=== PATIENT | male | born 1940 | race Caucasian/White ===

== ENCOUNTER 2016-06-28 21:51 | Inpatient (IN) | payer OTHER, MEDICARE ==
--- NOTE | ~2016-06-28 | DS ---
Unit #: [id number] #: [id number] Patient: GERALD ARGUETA [id number] [address] [place], [place] [address] [id number] I MR#: [id number] NAME: GERALD ARGUETA. ROOM: 215 Age: 75 Sex: M Admission Date: 06/29/2016 : 1940 Discharge Date: 07/01/2016 Attending Physician: Elvin Benoit M.D. Primary Care Physician: Heath De La Rosa M.D. DISCHARGE SUMMARY FINAL DIAGNOSIS Atypical pneumonia. SECONDARY DIAGNOSES 1. Gastroesophageal reflux disease. 2. Hypertension. CONSULT Dr. Wright, pulmonary. HOSPITAL COURSE Patient is a 75-year-old gentleman who basically presented with cough for the past 2 months. Presented to the emergency room and chest x-ray showed bilateral infiltrates with atypical pneumonia. He was seen by pulmonary and was started on Rocephin and Zithromax. He improved clinically and the cough improved. He has been seen by Dr. Wright. He initially was in isolation; however, this was discontinued. He was put on oral prednisone and will be converted to oral antibiotics today and discharged home for outpatient followup. Dr. Wright plans to do an outpatient CT for followup as an outpatient. He is currently not happy with his primary care provider and will follow up with a primary care provider of his choosing upon discharge. MEDICATIONS ON DISCHARGE Include: 1. Prednisone taper. 2. Albuterol HFA. 3. Humibid LA 600 mg p.o. twice daily. 4. Florastor 250 mg p.o. twice daily. 5. Aspirin 81 mg p.o. every day. 6. Omeprazole 20 mg p.o. every day. 7. Levaquin 750 mg p.o. every day for 5 more days if okay with pulmonary. TIME SPENT COORDINATING DISCHARGE About 22 minutes. Dictated by... Darcy Ding/loli TD: 07/01/2016 14:13 Unit #: [id number] #: [id number] Patient: GERALD ARGUETA JOB #: [id number] DISCHARGE SUMMARY X Gulshan Armando MD SUMMARY
--- NOTE | ~2016-06-28 | CO ---
Unit #: [id number] #: [id number] Patient: GERADL ARGUETA [id number] [place] [id number] [facility]. [place], [place] [address] [id number] Ryan MR#: [id number] NAME: GERALD ARGUETA. ROOM: 215 Age: 75 Sex: M Admission Date: 06/29/2016 : 1940 Attending Physician: Elvin Benoit M.D. Primary Care Physician: Heath De La Rosa M.D. Consultation Date: 06/29/2016 CONSULTATION REPORT REASON FOR CONSULTATION Possible pneumonia. HISTORY OF PRESENT ILLNESS The patient is a 75-year-old gentleman who I had seen in 2009 for an abnormal CAT scan consistent with old granulomatous disease. He has had a 1-month history of cough. Per his history, he was treated with Tessalon Perles without improvement. He had no definite fever but did have occasional mucopurulent sputum. There was maybe some scant blood-streaked sputum one month ago but none since. He ultimately was sent to the hospital where he was treated with Zithromax and Rocephin and improved. Multiple tests are pending, including HIV and gamma interferon release assay. He does feel better. There has been no definite wheezing. No further hemoptysis. No chest pain, pleurisy. No fever. He initially stated he had weight loss, but then he told me no definite weight loss. PAST MEDICAL HISTORY Past medical history is remarkable for gastroesophageal reflux disease, hypertension, hypercholesterolemia, apparently normal LV function. MEDICATIONS AT HOME According to the EHR, Tessalon Perles, aspirin and Prilosec. ALLERGIES Codeine. SOCIAL HISTORY Quit smoking decades ago. FAMILY HISTORY Apparently tuberculosis. REVIEW OF SYSTEMS As above. No fever, chills. Maybe some weight loss but that is vague. No chest pain, palpitations, abdominal pain, melena, hematochezia, hematemesis, hematuria, dysuria, focal weakness, paresthesias, leg pain, swelling. Further review of systems as above or negative. PHYSICAL EXAMINATION GENERAL: Examination reveals a gentleman who is awake and alert, greets me with, "Dr. Adriana Ricks." VITAL SIGNS: He is afebrile. Pulse is 68, respiratory rate 15, blood pressure 133/84. He is 5'7", 174 pounds. HEENT: Pupils equal, round and reactive to light. Sclerae anicteric. Unit #: [id number] #: [id number] Patient: GERALD ARGUETA Head atraumatic. Mucous membranes moist. He has a few natural teeth in his mandible that are in reasonable dentition. NECK: Supple. No supraclavicular or cervical adenopathy appreciated. CHEST: Decreased breath sounds. Fairly clear. No definite consolidation. CARDIAC: Examination reveals a regular rate and rhythm. No pathologic murmur, rub or gallop. ABDOMEN: Abdomen is soft, nontender. No hepatomegaly or rebound. EXTREMITIES: Extremities reveal no clubbing, cyanosis or edema. No calf tenderness. SKIN: Warm and dry without rash or diaphoresis. NEUROLOGIC: Grossly intact. No focal muscular or sensory deficits. DIAGNOSTIC STUDIES IMAGING: Chest x-ray - Fairly unremarkable. CT scan - He has a right medial lower lobe infiltrate consistent with pneumonia. He has a left peripheral infiltrate, likely pneumonia, and a small vague ground glass nodule in the left lower lobe. LABORATORY EXAMINATION: BUN is 11, creatinine 0.9. INR normal. Cardiac enzymes normal. CBC - White blood cell count 6.9, hemoglobin 12.6, platelet count 280. He has HIV pending. Legionella urine antigen negative. Flu screen negative. Fungal serology is pending. Urine shows 5-10 red cells, 2-5 white cells, leukocyte esterase positive. Blood cultures pending. Sputum is pending. CARDIOVASCULAR: EKG - Fairly normal. IMPRESSION 1. Pneumonia, community acquired, improved with antibiotic therapy. 2. Left lower lobe pulmonary nodule, unclear clinical significance. 3. Old granulomatous disease with a very prominent calcified granuloma right upper lobe. 4. Possible scant hemoptysis. 5. Medical problems listed above. PLAN Antibiotics. Followup cultures. Followup serologies. I would suggest outpatient short-term CT scan followup. If he has further hemoptysis, he will need bronchoscopy. Thank you very much for allowing me to participate in the care of Mr. Argueta. Dictated by... Alex Wright M.D. MANUELA/katarzyna TD: 06/29/2016 16:24 JOB #: [id number] Unit #: [id number] #: [id number] Patient: GERALD ARGUETA CONSULTATION REPORT X Alex Wright MD CONSULTATION REPORT
--- NOTE | ~2016-06-28 | CR72 ---
[facility] A Service of [facility] & [facility] RADIOLOGY TEXT RESULTS PATIENT: GERALD ARGUETA LOCATION: [place] [address]-01 : 42 UNIT #: [id number] AGE: [address]: Kiara Archuleta MD SEX: M ORDER DR: [id number] [facility] [address] [place], [place] [address] [id number] E MR#: [id number] Acc #: [id number] NAME: GERALD ARGUETA : 1940 SEX: M STUDY DATE/TIME: 06/28/2016 21:51 UNIT: CFTX ROOM: STUDY DESCRIPTION: CR Chest Single View Portable Attending Physician: Dina Barkley A.P.R.N. Ordering Physician: Dina Barkley A.P.R.N. Primary Care Physician: Heath De La Rosa M.D. MEDICAL IMAGING REPORT This report is preliminary unless electronic signature is present EXAM Portable chest, 06/28/2016 at 2151 hours. INDICATION Coughing fits and shortness of air for the last 2.5 months. FINDINGS AP portable chest is compared with 01/10/2010. Heart is enlarged. Infiltrate noted right iqt-ln-wiypy lung concerning for pneumonia. There is also a mild infiltrate at the left base. There are bilateral pleural effusions. Density in the left mid lung laterally is probably fluid in the fissure. Followup chest x-ray after therapy is completed is recommended. Granulomatous calcification noted right hilum and right upper lobe. IMPRESSION Bilateral infiltrates, right lzg-se-hczud lung and left base, worrisome for pneumonia. There are also bilateral pleural effusions. Density in the left mid lung is probably fluid in the fissure. Radiographic followup after therapy is recommended to ensure resolution. Dictated by... Cristiano Samaniego Jr., M.D. THIS IS AN ELECTRONICALLY VERIFIED REPORT Cristiano Samaniego Jr., M.D. at 06/29/2016 5:28 AM SHANIKA/carlin TD: 06/28/2016 23:41 JOB #: [id number] [facility]. [facility] A Service of [facility] & [facility] RADIOLOGY TEXT RESULTS PATIENT: GERALD ARGUETA LOCATION: [facility] 215-01 : 42 UNIT #: [id number] AGE: [address]: Kiara Archuleta MD SEX: M ORDER DR: MEDICAL IMAGING REPORT COPY
--- NOTE | ~2016-06-28 | PFT ---
[id number] [facility] [address] [place], [place] [address] [id number] I MR#: [id number] NAME: GERALD ARGUETA ROOM: 215 SEX: M STUDY DATE/TIME: 07/12/2016 : 1940 AGE: 75 STUDY DESCRIPTION: Attending Physician: Elvin Benoit M.D. Primary Care Physician: Haeth De La Rosa M.D. PULMONARY DIAGNOSTIC REPORT EXAM Pulmonary function test. FINDINGS Spirometry suggests a restrictive defect. FVC is reduced 70%. Flow volume loops consistent with a restrictive defect. Please note, restrictive defect cannot be confirmed with spirometry alone and would suggest full PFTs with lung volumes and diffusion capacity if clinically indicated. Dictated by... Darcy Honeycutt/dionna TD: 07/12/2016 12:47 JOB #: [id number] CC: Kiara Archuleta M.D. PULMONARY DIAGNOSTIC REPORT
--- NOTE | ~2016-06-28 | EKG ---
PATIENT: GERALD ARGUETA UNIT #: [id number] Ventricular Rate: 78 BPM Atrial Rate: 78 BPM P-R Interval: 130 ms QRS Duration: 86 ms Q-T Interval: 370 ms QTC Calculation(Bezet): 421 ms P [place]: 31 degrees Calculated R [place]: -9 degrees Calculated T [place]: 71 degrees Diagnosis Line: Normal sinus rhythm Diagnosis Line: Normal ECG Diagnosis Line: No previous ECGs available Diagnosis Line: Confirmed by CHARLA DUARTE MD ([id number]) on Diagnosis Line: 06/29/2016 8:05:45 AM INTERPRETING MD: ADRIAN
--- NOTE | ~2016-06-28 | CT57 ---
[facility] A Service of [facility] & [facility] RADIOLOGY TEXT RESULTS PATIENT: GERALD ARGUETA LOCATION: C2A - : 42 UNIT #: [id number] AGE: [address]: Elvin Benoit MD SEX: M ORDER DR: [id number] [facility] [address] [place], [place] [address] [id number] I MR#: [id number] Acc #: [id number] NAME: GERALD ARGUETA. : 1940 SEX: M STUDY DATE/TIME: 06/29/2016 7:56 UNIT: C2A ROOM: [facility] STUDY DESCRIPTION: CT Chest Wo Cont Attending Physician: Elvin Benoit M.D. Ordering Physician: Kiara Archuleta M.D. Primary Care Physician: Heath De La Rosa M.D. MEDICAL IMAGING REPORT This report is preliminary unless electronic signature is present EXAM CT of the chest without contrast INDICATION 75-year-old male with productive cough for 2 [address] and pneumonia. TECHNIQUE [address] of the chest was performed without contrast. Coronal and sagittal reformatted images were obtained. This CT exam was performed with one or more of the following radiation dose reduction techniques: automatic exposure control, adjustment of mA and/or kV according to patient size, and iterative reconstruction. COMPARISON 01/10/2010 FINDINGS There is dense consolidation in the right lower lobe consistent with pneumonia. There is a small focal consolidation in the posterior left upper lobe also consistent with pneumonia. There is a large calcified granuloma in the right lung. There is a 7.0 mm nodule in the left lower lobe on image 36 which is new since the study in 2009. The exact age is indeterminate. There is a small focal consolidation in the base of the left lower lobe. There are calcified mediastinal and hilar lymph nodes. There are also some prominent noncalcified mediastinal lymph nodes which are likely reactive given the findings in the lungs. No pleural effusion. Limited imaging of the upper abdomen is unremarkable. The bone windows are unremarkable. IMPRESSION 1. There are multifocal consolidations in the lungs, greatest in the right lower lobe. Findings are consistent with pneumonia. Followup [facility] A Service of [facility] & [facility] RADIOLOGY TEXT RESULTS PATIENT: GERALD ARGUETA LOCATION: A 215-01 : 42 UNIT #: [id number] AGE: [address]: Elvin Benoit MD SEX: M ORDER DR: to clearing is recommended. 2. There is a discrete 7.0 mm nodule in the left lower lobe which is indeterminate. It was not present on the 2009 study but the exact age and chronicity is uncertain. Recommend attention to this nodule on followup chest CT as well. Dictated by... Zack Willett M.D. THIS IS AN ELECTRONICALLY VERIFIED REPORT Zack Willett M.D. at 06/29/2016 4:14 PM Jhon TD: 06/29/2016 11:29 JOB #: [id number] MEDICAL IMAGING REPORT COPY
--- NOTE | ~2016-06-28 | HP ---
Unit #: [id number] #: [id number] Patient: GERALD ARGUETA [id number] [address] [place], [place] [address] [id number] I MR#: [id number] NAME: GERALD ARGUETA. ROOM: 215 Age: 75 Sex: M Admission Date: 06/29/2016 : 1940 Attending Physician: Kiara Archuleta M.D. Primary Care Physician: Heath De La Rosa M.D. HISTORY AND PHYSICAL CHIEF COMPLAINT Cough. HISTORY This 75-year-old male with GERD, is admitted for a cough and abnormal chest x-ray. The patient states that he was well until two months prior to admission when he developed a deep cough productive of milky, at times yellow sputum with some shortness of breath and bronchospasm. Denies fevers, sweats, or chills, or pleuritic chest pain with the above. He presents to this emergency department where his chest x-ray shows infiltrates in the right middle and right lower lobe, along with the left lower lobe. Denies previous positive PPD in the past. 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 In the ER he is afebrile, with a normal white count. He is treated with Tessalon Perle, 40 mg of prednisone, Rocephin and Zithromax and referred for admission. Of note, patient has noted a 15 pounds weight loss over the past year. He stopped smoking about 50 years ago. Denies history of chronic lung disease. PAST MEDICAL HISTORY 1. Previous history of hypertension. 2. GERD. 3. Cardiac catheterization in 2009 revealing normal coronary arteries. The patient was found to have mitral valve prolapse. An echo performed at that time, ejection fraction 50% to 55% with mild MR, TR and AR. 4. Previous colonoscopy with polypectomy. 5. Multiple surgeries for cleft palate. 6. Carpal tunnel release left wrist. ALLERGIES Codeine. HOME MEDICATIONS Tessalon Perles, aspirin, and Prilosec. FAMILY HISTORY Tuberculosis in his mother. Father of prostate cancer. Brother had an AK. SOCIAL HISTORY The patient lives with his spouse and son. Stopped smoking about 50 years ago, does not drink alcohol. Unit #: [id number] #: [id number] Patient: GERALD ARGUETA REVIEW OF SYSTEMS Notable for cough, shortness of breath, some wheezing, GERD, mitral valve prolapse, above mentioned surgeries. All other systems were reviewed and are negative. PHYSICAL EXAMINATION GENERAL: Pleasant 75-year-old male currently in no acute distress. VITAL SIGNS: Temperature 97.9, pulse 89, respirations 18, blood pressure 154/75, O2 saturation 93% on room air. HEENT: Eyes - PERRLA, extraocular muscles intact. Pharynx poor dentition. Previous soft palate surgeries noted. NECK: Supple without adenopathy, thyromegaly or carotid bruits. No elevation of the JVD. CHEST: Reveals crackles left base more than the right. CARDIAC: Normal S1 and S2 without murmur. ABDOMEN: Bowel sounds are present. No hepatosplenomegaly, tenderness or masses. EXTREMITIES: Without clubbing, cyanosis or edema. Pedal pulses are somewhat diminished. NEUROLOGIC: Patient is awake, alert and oriented. His cranial nerves are intact. His speech is fluent, although he has somewhat nasal speech. He has equal strength throughout. DIAGNOSTIC STUDIES ADMISSION LABS: Hematocrit 37.8, normal white count and platelet count, coags normal. SMA 12 - glucose 111, sodium 133, albumin 3.4, BNP normal, cardiac markers are negative. Blood cultures are pending. IMAGING STUDIES: Chest x-ray - right mid and lower lobe infiltrates, left lower lobe infiltrate, bilateral small pleural effusions, likely fluid in the fissure. CARDIOLOGY STUDIES: EKG - normal sinus rhythm, rate 78, normal appearing. ASSESSMENT 1. Cough for the past two months with bilateral infiltrates, which may represent some sort of atypical pneumonia. 2. GERD. 3. Weight loss. 4. Negative cardiac catheterization in 2009. 5. Cleft palate repair but no history of aspiration. 6. 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 PLANS 1. Rocephin and Zithromax. 2. CT scan of the chest. 3. Check gamma interferon release assay, HIV, Legionella antigen, and fungal serology. 4. Blood and sputum cultures. 5. Pulmonary consultation. 6. DVT prophylaxis. 7. Albuterol. Dictated by Unit #: [id number] #: [id number] Patient: GERALD ARGUETA Kiara Archuleta M.D. AML/ts TD: 06/29/2016 05:48 JOB #: [id number] CC: Darcy Colin HISTORY AND PHYSICAL X Kiara Archuleta MD X HISTORY AND PHYSICAL
[~2016-06-28 21:51] MED LIST: ACIPHEX20 MG PO; ASPIRIN81 M1 PO; CLARITIN10 M2 PO; LISINOPRIL PO; METFORMIN HCL500 M1 PO; PRAVACHOL PO; PRILOSEC PO
[2016-06-28 22:29] LABS: POC - TROPONIN <0.05 ng/mL (<=0.05)
[2016-06-28 22:31] LABS: BASOPHIL% 0.4 % (0-2.5); EOSINOPHIL# 0.1 X10e3 (0-0.7); EOSINOPHIL% 1.4 % (0.0-7.0); HEMATOCRIT 37.8 % (38.0-50.0); HEMOGLOBIN 12.6 gm/dL (13.0-16.0); LYMPHOCYTE# 1.4 X10e3 (1.0-3.5); LYMPHOCYTE% 20.1 % (17.0-45.0); MEAN CORPUSCULAR HEMOGLOBIN 29.4 PG (28-34); MEAN CORPUSCULAR HGB CONC 33.4 g/dL (30-36); MEAN PLATELET VOLUME 7.1 FL (6.5-11.5); MONOCYTE# 0.6 X10e3 (0-1.0); MONOCYTE% 8.3 % (3.0-12.0); NEUTROPHIL# 4.8 X10e3 (1.5-7.1); NEUTROPHIL% 69.8 % (40-75); PLATELET COUNT 280 X10e3 (140-420); RED CELL DISTRIBUTION WIDTH 13.9 % (11.0-15.5); WHITE BLOOD COUNT 6.9 X10e3 (4.0-10.5)
[2016-06-28 22:39] LABS: DIFF IND NO
[2016-06-28 22:52] LABS: ALBUMIN SERUM 3.4 g/dL (3.5-5.0); ALKALINE PHOSPHATASE 92 U/L (32-92); ALT (SGPT) 18 U/L (10-40); AST (SGOT) 17 U/L (10-42); BILIRUBIN, DIRECT 0.2 mg/dL (0.0-0.2); BILIRUBIN,INDIRECT 0.6 mg/dL (0.0-0.9); BILIRUBIN,TOTAL 0.8 mg/dL (0.2-2.0); BLOOD UREA NITROGEN 11 mg/dL (9-23); BUN/CREATININE RATIO 12.22; CALCIUM SERUM 8.6 mg/dL (8.4-10.2); CARBON DIOXIDE 25 mmol/L (22-31); CHLORIDE 101 mmol/L (100-111); CREATININE SERUM 0.9 mg/dL (0.6-1.4); GLOM FILT RATE Estimated ABOVE60 mL/min (>60); GLUCOSE FASTING 111 mg/dL (70-110); POTASSIUM 3.9 mmol/L (3.5-5.1); PROTEIN TOTAL SERUM 7.5 g/dL (6.0-8.3); SODIUM 133 mmol/L (135-145)
[2016-06-28 23:43] LABS: INR 1.1; PARTIAL THROMBOPLASTIN TIME 29.6 SECONDS (23.5-31.3); PROTHROMBIN TIME (PATIENT) 11.2 SECONDS (9.6-11.5)
[2016-06-28] MEDS ORDERED: ASPIRIN EC81 M1 PO (23:58)
[2016-06-29 01:14] LABS: INFLUENZA A NEG (NEG); INFLUENZA B NEG (NEG)
[2016-06-29 09:34] LABS: URINE SOURCE CLEAN CATCH
[2016-06-29 09:38] LABS: URINE APPEARANCE CLEAR; URINE BILIRUBIN NEG (NEG); URINE BLOOD 2+ (NEG); URINE COLOR YELLOW; URINE GLUCOSE NEG (NEG); URINE KETONE TRACE (NEG); URINE LEUKOCYTE ESTERASE TRACE (NEG); URINE NITRATE NEG (NEG); URINE PH 5.5 (5-8); URINE PROTEIN NEG (NEG); URINE SPECIFIC GRAVITY 1.016 (1.003-1.035)
[2016-06-29 09:41] LABS: URINE BACTERIA AUWI NEG (NEGATIVE); URINE SQUAMOUS EPITHELIAL CELL NONE SEEN /[HPF]
[2016-06-29 09:50] LABS: CULTURE INDICATED? NO
[2016-06-30 06:06] LABS: HEMATOCRIT 37.1 % (38.0-50.0); HEMOGLOBIN 12.7 gm/dL (13.0-16.0); MEAN CELL VOLUME 88.3 FL (83-96); MEAN CORPUSCULAR HEMOGLOBIN 30.1 PG (28-34); MEAN CORPUSCULAR HGB CONC 34.2 g/dL (30-36); MEAN PLATELET VOLUME 7.2 FL (6.5-11.5); RED BLOOD COUNT 4.21 X10e (3.90-5.60); RED CELL DISTRIBUTION WIDTH 13.7 % (11.0-15.5); WHITE BLOOD COUNT 7.1 X10e3 (4.0-10.5)
[2016-06-30 06:57] LABS: BLOOD UREA NITROGEN 20 mg/dL (9-23); CALCIUM SERUM 9.1 mg/dL (8.4-10.2); CARBON DIOXIDE 26 mmol/L (22-31); CHLORIDE 104 mmol/L (100-111); GLOM FILT RATE Estimated ABOVE60 mL/min (>60); GLUCOSE FASTING 93 mg/dL (70-110); POTASSIUM 4.6 mmol/L (3.5-5.1); SODIUM 139 mmol/L (135-145)
[2016-07-01 05:33] LABS: HEMATOCRIT 35.3 % (38.0-50.0); HEMOGLOBIN 12.2 gm/dL (13.0-16.0); MEAN CELL VOLUME 88.7 FL (83-96); MEAN CORPUSCULAR HEMOGLOBIN 30.7 PG (28-34); MEAN CORPUSCULAR HGB CONC 34.6 g/dL (30-36); MEAN PLATELET VOLUME 7.2 FL (6.5-11.5); RED BLOOD COUNT 3.98 X10e (3.90-5.60); RED CELL DISTRIBUTION WIDTH 13.7 % (11.0-15.5); WHITE BLOOD COUNT 8.8 X10e3 (4.0-10.5)
[2016-07-01 06:03] LABS: BLOOD UREA NITROGEN 20 mg/dL (9-23); CARBON DIOXIDE 26 mmol/L (22-31); CHLORIDE 101 mmol/L (100-111); CREATININE SERUM 0.8 mg/dL (0.6-1.4); GLOM FILT RATE Estimated ABOVE60 mL/min (>60); GLUCOSE FASTING 111 mg/dL (70-110); POTASSIUM 4.1 mmol/L (3.5-5.1); SODIUM 135 mmol/L (135-145)
[2016-07-01] MEDS ORDERED: PROVENTIL5 MG/ML INH (17:18)
[2016-07-01] MEDS ORDERED: PREDNISONE PO (17:19)
[2016-07-01] MEDS ORDERED: LEVAQUIN750 MG PO (17:30)
[2016-07-01 23:14] LABS: NIL 0.04 IU/mL (()); QUANTIFERON NEGATIVE (Negative); TB AG-NIL <0.00 IU/mL (())
[2016-07-03 13:51] LABS: ASPERGILLUS FLAVUS Negative (Negative); ASPERGILLUS FUMIGATUS Negative (Negative); ASPERGILLUS NIGER Negative (Negative); BLASTOMYCES ANTIBODY Negative (Negative); COCCIDIODES ANTIBODY Negative (Negative); CRYPTOCOCCAL AB <1:2 (()); CRYPTOCOCCAL AG SCREEN SOURCE Serum (()); CRYPTOCOCCAL SCREEN Not Detected (Not Detected); HISTOPLASMA AB Negative (Negative)
== END 2016-07-01 18:52 | disposition home or self-care (01) | DRG 194 ==
LOC: CFTX 21:51 → CEDOF 06-29 00:30 → C2A 06-29 01:20
PROVIDERS: Internal Medicine; Nurse Practitioner; Physician Assistant Medical
DX: J18.9 Pneumonia, unspecified organism (principal); R04.2 Hemoptysis; J84.10 Pulmonary fibrosis, unspecified; K21.9 Gastro-esophageal reflux disease without esophagitis; I10 Essential (primary) hypertension; I08.3 Combined rheumatic disorders of mitral, aortic and tricuspid valves; Z79.82 Long term (current) use of aspirin; R63.4 Abnormal weight loss
CPT/HCPCS: 36415; 71010; 71250; 80048; 80076; 81003; 82553; 83880; 84484; 85025; 85027; 85610; 85730; 86480; 86606; 86612; 86631; 86698; 87040; 87070; 87205; 87449; 87804; 87806; 87899; 93005; 94640; 94664; 94760; 99285; J0456; J0696; J1650

== ENCOUNTER 2016-09-07 10:57 | Inpatient (IN) | payer OTHER ==
--- NOTE | ~2016-09-07 | HP ---
Unit #: [id number] #: [id number] Patient: GERALD ARGUETA [id number] [address] [place], [place] [address] [id number] MR#: [id number] NAME: GERALD ARGUETA ROOM: Age: 75 Sex: M Admission Date: 09/07/2016 : 1940 Attending Physician: Jc Natarajan M.D. Primary Care Physician: No Primary Care Physician HISTORY AND PHYSICAL CHIEF COMPLAINT Shortness of breath. HISTORY OF PRESENT ILLNESS The patient is a 75-year-old male with a history of chronic obstructive pulmonary disease, brought to the emergency room complaining of shortness of breath and left shoulder pain. The patient was recently discharged from the hospital on 07/01/2016 with pneumonia. The patient stated he has been coughing up since then with (1) . The patient also complains of worsening shortness of breath. The patient also complains of pain mainly in the left shoulder, associated with cough and shortness of breath. She denies any fever, chills, nausea or vomiting. The patient had a chest x-ray that showed extensive bilateral infiltrates are seen. Overall fairly similar in distribution to findings on 06/28/2016. Lung aeration is overall worse and infiltrates appear increased. The patient is being admitted for the above reasons. PAST MEDICAL HISTORY 1. History of hypertension. 2. Gastroesophageal reflux disease. 3. Cardiac catheterization. 4. Chronic obstructive pulmonary disease. PAST SURGICAL HISTORY 1. Colonoscopy. 2. Multiple surgeries for cleft palate. 3. Carpal tunnel release. SOCIAL HISTORY The patient lives with his spouse and son. Stopped smoking about 50 years ago, does not drink alcohol. FAMILY HISTORY Tuberculosis in his mother. Father of prostate cancer. ALLERGIES Codeine. HOME MEDICATIONS 1. He is on inhalers. 2. Aspirin. 3. Antacid. Unit #: [id number] #: [id number] Patient: GERALD ARGUETA REVIEW OF SYSTEMS Fourteen point review of systems was performed and only pertinent findings are described above. Remaining are negative. PHYSICAL EXAMINATION GENERAL: The patient is lying on a bed, not in acute distress. VITALS: Temperature 98.3, pulse 92, respiratory rate 18, blood pressure 142/71, saturating 91% on room air. HEENT: Head atraumatic, normocephalic. Pupils equal, round and reactive to light and accommodation. Dry mucous membranes. NECK: Supple. LUNGS: Decreased air entry at the bases. Positive for rhonchi. HEART: Regular rate and rhythm. ABDOMEN: Soft. Positive bowel sounds. EXTREMITIES: No cyanosis. No clubbing. NEUROLOGIC: Awake, alert and oriented. No gross focal motor deficits. DIAGNOSTIC STUDIES IMAGING: Chest x-ray shows extensive bilateral infiltrates, overall fairly similar in distribution to findings on 06/28/2016. Lung aeration is overall worse and infiltrates appear increased right lateral and lower lungs, on the left midlung infiltrates are demonstrated. There is a vascular congestion along with borderline to mid cardiomegaly. There is no pneumothorax. X-ray of the shoulder no evidence of fracture or dislocation. There is a mild degenerative change of the left shoulder. X-ray of the spine shows some mild cervical degenerative change, but no fracture. There is mid cervical degenerative reversal of lordosis, but no acute abnormality seen. CT of the chest report is pending. LABORATORY: Glucose 124, BUN 18, creatinine 0.8, sodium 137, potassium 2.6, chloride 98, bicarb 28, calcium 8.8, magnesium 1.6, albumin 2.8, AST 18, ALT 20, alkaline phosphatase 84, BNP 32, INR 1.1, troponin less than 0.05, white blood cell count 10, hemoglobin 12.4, hematocrit 37.7, platelets 373, neutrophils 82.6. CARDIOVASCULAR: EKG shows sinus rhythm with occasional PVCs and left ventricular hypertrophy with LA interval of 126 and QTC pulse of 51. ASSESSMENT 1. Chronic obstructive pulmonary disease exacerbation. 2. Pneumonia. 3. Hypokalemia. 4. Hypoxia. PLAN Admit the patient to telemetry. The patient will have Solu-Medrol and IV antibiotics and replace the potassium per protocol. Duo-Nebs. The patient will have a pulmonary consult with Dr. Wright. Further recommendations will follow. Dictated by Ashkan Her M.D. Unit #: [id number] #: [id number] Patient: GERALD ARGUETA LESLIE/padmini TD: 09/07/2016 15:55 JOB #: [id number] HISTORY AND PHYSICAL Page 1 of 1 X X HISTORY AND PHYSICAL
--- NOTE | ~2016-09-07 | CO ---
Unit #: [id number] #: [id number] Patient: EGRALD FRENCH [id number] [address] [address] [id number] I MR#: [id number] NAME: GERALD FRENCH. ROOM: [facility] Age: 76 Sex: M Admission Date: 09/07/2016 : 1940 Attending Physician: Chantel Linares M.D. Consultation Date: 09/10/2016 CONSULTATION REPORT CHIEF COMPLAINT Left scapular mass. HISTORY OF PRESENT ILLNESS Mr. French is a 76-year-old gentleman who has been admitted with progressive bilateral pulmonary infiltrates as noted on CT scan. Orthopedic consultation has been requested regarding a scapular mass which was identified in workup of left shoulder pain. He has had progressive left shoulder pain over the past five months. He had been seen as an outpatient and reportedly had undergone workup with a plain film radiography only. This was reportedly normal. The patient is unable to relate any significant treatment course to date. He states that he has had progressively increasing pain in the left shoulder with gradual loss of motion throughout the past five months. He presented to the emergency department for increasing shortness of breath and left shoulder pain. An MRI has now been obtained which demonstrates the aforementioned left scapular mass. Orthopedic consultation has been requested. The patient states that he was unaware of any soft tissue mass visible or palpable over the posterior aspect of the shoulder. He has no pain or tenderness in this area. PAST MEDICAL HISTORY 1. Hypertension. 2. Chronic obstructive pulmonary disease. 3. Gastroesophageal reflux disease. 4. Shortness of breath with history of pulmonary infiltrates. 5. Pneumonia. PAST SURGICAL HISTORY 1. Cardiac catheterization. 2. Colonoscopy. 3. Cleft palate repair. 4. Carpal tunnel release. CURRENT MEDICATIONS 1. Vancomycin. 2. Zosyn. 3. Lovenox. 4. Solu-Medrol. 5. Dulera. 6. Protonix. 7. Claritin. 8. Aspirin. Unit #: [id number] #: [id number] Patient: GERALD FRENCH 9. Potassium supplement. ALLERGIES No known drug allergies. SOCIAL HISTORY The patient has no current tobacco history. He has no alcohol use. He is not working. FAMILY HISTORY Tuberculosis in his mother. REVIEW OF SYSTEMS Positive for unintentional weight loss and shoulder pain as noted in the History of Present Illness. Otherwise negative on review of 10 systems. PHYSICAL EXAMINATION GENERAL APPEARANCE: No acute distress or discomfort. He is sitting upright in bed resting comfortably. HEENT: Normocephalic and atraumatic cranium. Ptosis to the left eye. PSYCHIATRIC: Awake, alert, and oriented to person, place, time, and situation. CARDIAC: Regular rate and rhythm. PULMONARY: He has audible secretions and audible expiratory wheeze. ABDOMEN: Soft and nondistended. No masses. NEUROLOGIC: Intact motor and sensory function in the axillary, median, ulnar, and radial nerves in the left upper extremity. VASCULAR: His left hand is warm and well perfused with palpable radial pulse. SKIN: There is a palpable subcutaneous mass over the spine of scapula. There are no overlying skin changes. MUSCULOSKELETAL: He has painful range of motion of the left shoulder. With passive motion, I can reach approximately 80 degrees of abduction and forward elevation. He has pain with gentle internal and external rotation with the elbow at the side. Actively, he is only able to lift the elbow up off the mattress of the bed and essentially no further. LYMPHATICS: No lymphadenopathy or lymphedema is noted. DIAGNOSTIC STUDIES IMAGING: MRI is reviewed of the left shoulder and demonstrates a profound amount of edema throughout the rotator cuff musculature. There is an incompletely imaged mass in the left scapula. This measures greater than 4 cm. It appears somewhat aggressive in that it appears to be destructive of the scapular bone. IMPRESSION A 76-year-old gentleman with left scapular mass concerning for malignancy. PLAN He already has a repeat MRI ordered of the left scapula. We will await results of the MRI. He will likely need further workup with PET CT. This is concerning for metastatic disease or even a possible primary sarcoma. He will likely need an outpatient referral to an orthopedic oncologist for definitive management of the scapular lesion given its apparent extent on this MRI. We will be happy to continue to follow along with him throughout his hospital course and facilitate the appropriate orthopedic referral for his Unit #: [id number] #: [id number] Patient: GERALD FRENCH scapbora. Thank you for the consult. Dictated by... Kain Delgado M.D. Bhavna TD: 09/10/2016 14:11 JOB #: [id number] CONSULTATION REPORT Page 1 of 1 X Kain Delgado MD CONSULTATION REPORT
--- NOTE | ~2016-09-07 | CR58 ---
[facility] A Service of [facility] & [facility] RADIOLOGY TEXT RESULTS PATIENT: GERALD ARGUETA LOCATION: [facility] 305-01 : 42 UNIT #: [id number] AGE: [address]: April Wilson MD SEX: M ORDER DR: [id number] [facility] [address] [facility]. [place], [place] [address] [id number] MR#: [id number] Acc #: [id number] NAME: GERALD ARGUETA : 1940 SEX: M STUDY DATE/TIME: 09/07/2016 12:26 UNIT: [facility] ROOM: STUDY DESCRIPTION: CR Cervical Spine 2 or 3 Views Attending Physician: Jc Natarajan M.D. Ordering Physician: Jc Natarajan M.D. Primary Care Physician: Primary Care Physician No MEDICAL IMAGING REPORT This report is preliminary unless electronic signature is present EXAM Cervical spine series 5 views 09/07/2016 HISTORY Neck pain after fall today. FINDINGS There is mild cervical degenerative change but no fracture. There is a midcervical degenerative reversal of lordosis but no acute abnormality is seen. Dictated by... Italo Cortez M.D. THIS IS AN ELECTRONICALLY VERIFIED REPORT Italo Cortez M.D. at 09/11/2016 10:36 AM JR/baljeet TD: 09/07/2016 13:32 JOB #: [id number] MEDICAL IMAGING REPORT Page 1 of 1 COPY
--- NOTE | ~2016-09-07 | DS ---
Unit #: [id number] #: [id number] Patient: GERALD ARGUETA [id number] [address] [address] [id number] I MR#: [id number] NAME: GERALD ARGUETA. ROOM: 305 Age: 76 Sex: M Admission Date: 09/07/2016 : 1940 Discharge Date: 09/15/2016 Attending Physician: Elvni Benoit M.D. Primary Care Physician: No Primary Care Physician DISCHARGE SUMMARY REVISED REPORT DISCHARGE DIAGNOSES 1. Bilateral pneumonia. 2. Acute hypoxic respiratory failure. 3. Acute chronic obstructive pulmonary disease exacerbation. 4. Left scapular mass concerning for malignancy. 5. Left arm swelling. No deep venous thrombosis. No cellulitis. 6. Essential hypertension. 7. Gastroesophageal reflux disease. CONSULTANTS 1. Pulmonary with Dr. Salguero and Dr. Wright. 2. Orthopedic with Dr. Kain Delgado. 3. Oncology with Dr. Broussard. PROCEDURES 1. Patient had a bronchoscopy done by Dr. Wright on September 12, 2016. 2. Left shoulder mass biopsy done by interventional radiology on September 13, 2016. DIAGNOSTIC STUDIES LABORATORY: Patient's labs today: BMP: Glucose 198, BUN 24, creatinine 0.8, sodium 133, potassium 4.4, chloride 96, CO2 of 29, magnesium 1.9, calcium 8.8. Total protein 6.4, albumin 2.5, total bilirubin 0.2, AST 21, ALT 19, alkaline phosphatase 67. Amylase 19, lipase 12. CBC with WBC of 16.4, RBC 4.09, hemoglobin 11.5, hematocrit 35.8, MCV 87.5, MCH 28.2, MCHC 32.3, RDW 14.5, platelets 443,000, MPV 6.7. IMAGING: Chest x-ray, September 07, 2016: Impression - extensive bilateral infiltrate seen over all, fairly similar to distribution on June 28, 2016. X-ray of shoulder, September 07, 2016: No evidence of fracture or dislocation. There is mild degenerative change. X-ray of the spine on September 07, 2016: Mild cervical degenerative change but no fracture. There is a mid cervical degenerative reversal of lordosis but no acute abnormality is seen. CT angio chest on September 07, 2016: No acute pulmonary embolus seen. 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 Significant interval worsening of bilateral infiltrates in both lungs. Could reflect infectious or inflammatory process. Also, Unit #: [id number] #: [id number] Patient: GERALD ARGUETA right adrenal enlargement which is new when compared to prior study. Thickening of left shoulder musculature which is concerning for metastatic disease. MRI of shoulder on September 09, 2016: Partially imaged mass abutting the superior medial border of the scapula, possibly involving the bone. Mass measures at least 4.2 x 3.4 cm in cross section and 2.6 cm in CC dimension. Mass is only partially imaged on exam concerning for malignancy or metastatic disease. Further PET CT suggested. Mild supraspinatus and infraspinatus tendinopathy. No evidence of rotator cuff tear. Generalized labral degeneration. No glenohumeral effusion. Mild inflammation. Subacromial/subdeltoid bursae. X-ray of the left shoulder: Impression - a 5.0 x 4.2 x 3.3 cm posterior medial superior scapular body region. Large soft tissue mass with extensive soft tissue enhancing nonspecific, could represent primary or secondary neoplasm. Biopsy on September 13, 2016: Impression - technically successful ultrasound-guided biopsy of a posterior left shoulder mass. Ultrasound of the upper extremity, left: Impression - normal venous examination of the left upper extremity. No deep or superficial vein thrombosis is demonstrated in the left arm. HOSPITAL COURSE Patient is a pleasant 76-year-old male with past medical history of COPD, essential hypertension, GERD, previous heart catheterization who presents to the emergency department due to symptoms of shortness of breath. Please refer to the full H and P for further details. Patient was admitted under COPD exacerbation and pneumonia, was treated with IV antibiotic and was seen in consultation with pulmonary. CT angio of the chest was done to rule out a PE. No PE was found but it did reveal concerning for malignancy process. Therefore, the patient had undergone bronchoscopy by Dr. Wright on September 12, 2016. Currently, pathology of that report shows that their smears are very cellular and reveal alveolar macrophages, bronchial epithelial cells, inflammatory cells, and single clusters of atypical cells suspicious of malignancy. Patient also had pathology of the mass of the left scapula. 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 Suggest correlation with clinical, radiographic findings. Orthopedic with Dr. Delgado was consulted who suggested a biopsy to be done via interventional radiology. Dr. Delgado suggests that if they need to be done would defer this to orthopedic oncology to do anything for this. I have asked Dr. Broussard of oncology to see this patient and patient will follow up with Dr. Broussard for any further oncology needs. With this extensive hospitalization, I did ask physical and occupational to see this patient and it was felt by physical therapy that patient is at his baseline. He had ambulated for about 300 feet. He did desaturate with ambulation. Therefore, I will be sitting up for home oxygen upon discharge. Due to his possible lung malignancy, patient will likely have chronic hypoxic respiratory failure as patient is pretty fragile at this point. It is likely that patient could be at high recurrence for rehospitalization. DISCHARGE CONDITION Stable to home. Unit #: [id number] #: [id number] Patient: GERALD ARGUETA DISCHARGE FOLLOWUP 1. Followup with primary care physician within one to two weeks. 2. Followup with Dr. Wright within four to six weeks. 3. Followup with Dr. Broussard for any oncology further needs. ACTIVITY None restricted. DIET None restricted. MEDICATIONS 1. Ventolin two puffs inhaled four hours as needed for shortness of breath. 2. Claritin 10 mg orally daily. 3. Prednisone 40 mg orally daily for the next two days, then 30 mg orally for three days, then 20 mg orally for three days, then 10 mg orally for three days. 4. Breo 100 mcg with 25 inhaled one puff daily. 5. Aspirin 81 mg orally daily. 6. Protonix 40 mg orally daily. Discharge took 45 minutes to include patient education and to coordinate care. Dictated by... Lupillo Hernandez PA-C for Darcy Burt/linwood TD: 09/18/2016 09:15 JOB #: [id number] DISCHARGE SUMMARY Page 1 of 1 X X DISCHARGE SUMMARY
--- NOTE | ~2016-09-07 | CO ---
Unit #: [id number] #: [id number] Patient: GERALD ARGUETA [id number] [facility] [place], [place] [address] [id number] Ryan MR#: [id number] NAME: GERALD ARGUETA. ROOM: 305 Age: 76 Sex: M Admission Date: 09/07/2016 : 1940 Attending Physician: Elvin Benoit M.D. Primary Care Physician: Primary Care Physician No Consultation Date: 09/15/2016 CONSULTATION REPORT REASON FOR EVALUATION Metastatic lesion on the left scapula. Please evaluate. HISTORY OF PRESENT ILLNESS This is a 76-year-old gentleman who came in with COPD exacerbation, possible pneumonia, was found to have left scapular lesion which, upon biopsy, proved to be metastatic lesion, unknown primary. Further immunostains pending. We are requested to evaluate. Further on questioning, he states that the shortness of breath persists, that he is more comfortable on the oxygen. No hemoptysis, hematemesis, melena, hematuria. There is some discomfort at the left scapula but otherwise he has no other complaints. PAST MEDICAL HISTORY Remarkable for: 1. Hypertension. 2. COPD. Otherwise, no major illnesses. CHRONIC MEDICATIONS Mainly inhalers. ALLERGIES Codeine. SOCIAL HISTORY Lives at home. Has a and a son. He did smoke but quit smoking many decades ago. FAMILY HISTORY Positive for TB in his mother and prostate cancer in his father. REVIEW OF SYSTEMS Shortness of breath, cough, ill health, tiredness. Appetite is fair. Weight is stable. He has O2 at 2 liters nasal cannula. No chronic pain. Otherwise, six or eight systems are within normal limits. PHYSICAL EXAMINATION GENERAL: Looks stated age in no acute distress. HEENT: Examination of head, eyes, ears, nose and throat is unremarkable. HEMATOLOGIC/LYMPHATIC: No palpable nodes. CARDIOVASCULAR: Distant S1, S2. Normal rate without any murmurs or gallops. Unit #: [id number] #: [id number] Patient: GERALD ARGUETA RESPIRATORY: Bilateral wheeze, crackles. No rales. SCAPULA: There is a bandage and mild tenderness. I did not remove the bandage. ABDOMEN/GASTROINTESTINAL: No organomegaly. NEUROLOGICAL: Grossly intact. The remainder was not performed. MUSCULOSKELETAL: No evidence of joint swelling, bone tenderness or muscle tenderness is appreciable. SKIN: No lesions or rashes. PSYCHIATRIC: No delusions or hallucinations, no loose associations, no flight or ideas, no tangentiality. Affect is appropriate. No psychomotor slowing or agitation. Eye contact is appropriate. DIAGNOSTIC STUDIES LABORATORY: Chemistry glucose 198, BUN 24, creatinine 0.8, sodium 133, potassium 4.4, chloride 96, CO2 is 29, direct bilirubin 0.3, total bilirubin 0.6, AST 21, ALT 19, alkaline phosphatase 67. Pro time 11.4, INR 1.1. Hemoglobin 11.5, hematocrit 35.8, white count 16.4, platelets 443,000. PATHOLOGY: Read as neoplasm in fibroconnective tissue. There was abundant necrosis. Immunostains were positive for CK-20, FALLON-2, B53 and it was negative for TTF 1. So the immunoprofile was suggestive of primary colorectal or GI carcinoma metastatic to scapula or a primary adenocarcinoma poorly-differentiated with empiric features metastatic to scapula. IMAGING: CT angio done on 09/07/2016 was reviewed and it shows no PE, mild aneurysmal dilatation of the aorta, bilateral infiltrates both lungs, either infectious or inflammatory. Previous CT scan showed a 0.7 cm nodule which was new. Ultrasound of the extremity was negative. DISCUSSION All of this was discussed with the patient in great detail. Options discussed and, as they are ready to let him go home as it is a Sunday, I would suggest that we see him in the office Sunday. I will schedule an appointment for him at 2 p.m. Sunday afternoon and we will proceed with a PET scan. Dictated by... Darcy Mcguire/foster TD: 09/15/2016 16:20 JOB #: [id number] Unit #: [id number] #: [id number] Patient: GERALD ARGUETA CONSULTATION REPORT Page 1 of 1 X Enio Broussard MD CONSULTATION REPORT
--- NOTE | ~2016-09-07 | TOC ---
Unit #: [id number] #: [id number] Patient: GERALD ARGUETA [id number] [address] [address] [id number] I MR#: [id number] NAME: GERALD ARGUETA. ROOM: [facility] Age: 76 Sex: M Admission Date: 09/07/2016 : 1940 Attending Physician: April Wilson M.D. Primary Care Physician: No Primary Care Physician TRANSFER OF CARE SUMMARY DATE September 11, 2016. DIAGNOSIS ON ADMISSION Chronic obstructive pulmonary disease exacerbation. CURRENT DIAGNOSES 1. Bilateral pneumonia. 2. Acute respiratory failure. 3. Acute exacerbation of chronic obstructive pulmonary disease. 4. Hypertension. 5. Gastroesophageal reflux disease. 6. Left scapular mass. HOSPITAL COURSE A 76-year-old male was admitted to the hospital with shortness of air. Details are as per admission H and P. COPD exacerbation: Patient was seen by Dr. Wright in consultation and is treated with DuoNeb Mini neb treatments. Bilateral pneumonia: Patient is being treated with antibiotics. Patient's condition is not improving, so Dr. Wright is planning to do a bronchoscopy tomorrow. Left shoulder pain: Patient was complaining of left shoulder pain. MRI was done which revealed scapular mass. Patient will have a repeat MRI with contrast. He is being seen by orthopedic in consultation. Patient's mass is concerning for metastatic disease. Further hospital course will be dictated by my partner. Dictated by... Darcy Stock/linwood TD: 09/11/2016 11:23 JOB #: [id number] Unit #: [id number] #: [id number] Patient: GERALD ARGUETA TRANSFER OF CARE SUMMARY Page 1 of 1 X April Wilson MD TRANSFER OF CARE SUMMARY
--- NOTE | ~2016-09-07 | MR162 ---
[facility] A Service of [facility] & [facility] RADIOLOGY TEXT RESULTS PATIENT: GERALD ARGUETA LOCATION: [facility] 305- : 42 UNIT #: [id number] AGE: [address]: April Wilson MD SEX: M ORDER DR: [id number] [facility] [address] [facility] [place], [place] [address] [id number] I MR#: [id number] Acc #: [id number] NAME: GERALD ARGUETA. : 1940 SEX: M STUDY DATE/TIME: 09/10/2016 14:41 [facility]: [facility] STUDY DESCRIPTION: MR Shoulder WWo Contrast Lt Attending Physician: April Wilson M.D. Ordering Physician: Guillermo Salguero M.D. Primary Care Physician: Primary Care Physician No MRI CENTER REPORT This report is preliminary unless electronic signature is present. EXAM MRI left shoulder/scapula without and with IV contrast, 09/10/2016 HISTORY Order states contrast enhanced MRI of scapula. Pulmonary progress note states scapular mass. Bilateral infiltrate progression. Scapular mass, ? Metastatic disease. Technologist reports left shoulder pain, limited range of motion for 2 months. No reported cancer history. COMPARISON MRI left shoulder 09/09/2016, CT angiogram of the chest 09/07/2016. FINDINGS There is a large 5.0 x 4.2 x 3.3 cm soft tissue mass involving the posteromedial upper body of the scapula. There is no irish osseous destruction by CT. There is marked surrounding enhancing inflammation and/or reactive edema. Diffuse tumor infiltration is considered less likely. No additional osseous or soft tissue masses are noted. Bilateral lung infiltrative processes are noted. See CT report for improved characterization. See separate MRI left shoulder for the left shoulder findings. There is multilevel cervical degenerative disc disease with a canal narrowing. IMPRESSION 5.0 x 4.2 x 3.3 cm posteromedial superior scapular body region large soft tissue mass with extensive surrounding soft tissue enhancement. The MR appearance is nonspecific and this could reflect primary or secondary neoplasm. No additional osseous or soft tissue masses are noted. STS. [facility] A Service of [facility] & [facility] RADIOLOGY TEXT RESULTS PATIENT: GERALD ARGUETA LOCATION: [facility] 305-01 : 42 UNIT #: [id number] AGE: [address]: April Wilson MD SEX: M ORDER DR: Dictated by... Mile Dooley M.D. THIS IS AN ELECTRONICALLY VERIFIED REPORT Mile Dooley M.D. at 09/11/2016 2:14 PM ROJAS/suresh TD: 09/11/2016 10:43 JOB #: [id number] MRI CENTER REPORT Page 1 of 1 COPY
--- NOTE | ~2016-09-07 | CT16 ---
[facility] A Service of [facility] & [facility] RADIOLOGY TEXT RESULTS PATIENT: GERALD ARGUETA LOCATION: [facility] 305-01 : 42 UNIT #: [id number] AGE: [address]: Chantel Linares MD SEX: M ORDER DR: [id number] [facility] [address] [place], [place] [address] [id number] E MR#: [id number] Acc #: [id number] NAME: GERALD ARGUETA : 1940 SEX: M STUDY DATE/TIME: 09/07/2016 14:48 UNIT: [facility] ROOM: STUDY DESCRIPTION: CT Angio Chest for PE Attending Physician: Jc Natarajan M.D. Ordering Physician: Jc Natarajan M.D. Primary Care Physician: No Primary Care Physician MEDICAL IMAGING REPORT This report is preliminary unless electronic signature is present EXAM CT angiogram of the chest INDICATIONS Shortness of breath and left shoulder pain since September 05, 1016. TECHNIQUE Axial CT images were obtained from the thoracic inlet through the dome of the diaphragm following the administration of intravenous contrast material. Following this 3-D reformatted images were obtained. This CT exam was performed with one or more of the following radiation dose reduction techniques: automatic control, adjustment of mA and/or kV according to patient size, and iterative reconstruction. FINDINGS No acute pulmonary thromboembolus is seen although timing of the contrast bolus is somewhat limited and certainly no large central pulmonary thromboembolus is identified. 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 Exam was not optimized for evaluation of the thoracic aorta but no obvious dissection is seen. The thyroid gland trachea and esophagus appear unremarkable. There are coronary artery calcifications. There is no pericardial effusion. This patient has extensive infiltrates seen throughout both lungs right greater than left. I think their appearance is most in keeping with multifocal pneumonia. But similar findings were present on June 29, 2016 and they have worsened significantly since that time. Mediastinal lymph nodes are mildly prominent although I am not convinced they have changed significantly when compared to the prior study. Images through the right upper quadrant. This patient has enlargement of STS. [facility] A Service of [facility] & [facility] RADIOLOGY TEXT RESULTS PATIENT: GERALD ARGUETA LOCATION: [facility] 305-01 : 42 UNIT #: [id number] AGE: [address]: Chantel Linares MD SEX: M ORDER DR: the right adrenal gland measuring up to 1.8 cm. This is a new finding when compared to the prior study from June 09, 2016. Given progression of disease when compared to the June exam, I think findings are certainly concerning for metastatic disease. Multiple calcified granulomata are seen within the spleen. No other acute abnormalities are seen within the upper abdomen. This patient is noted have asymmetric thickening of the shoulder girdle musculature. This is a new finding when compared to the prior exam and I question if there is some subtle irregularity of the tip of the scapula. This could reflect an infectious or inflammatory process but given the findings within the chest as well as right adrenal enlargement, I think findings are worrisome for metastatic disease. MRI would be helpful for additional characterization. IMPRESSION 1. No acute pulmonary thromboembolus seen. 2. 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 3. Significant interval worsening of bilateral infiltrates in both lungs. While this could reflect an infectious or inflammatory process the patient has also developed right adrenal enlargement which is new when compared to the prior study as well as asymmetric thickening of the left shoulder musculature. This certainly raises concern for metastatic disease. Further evaluation of the left shoulder/scapula with MRI is suggested to evaluate for underlying mass lesion. At a minimum short-term CT followup is recommended to document resolution. Alternatively PET could be considered on a nonemergent outpatient basis. Dictated by... Dacia Garcia M.D. THIS IS AN ELECTRONICALLY VERIFIED REPORT Dacia Garcia M.D. at 09/08/2016 3:30 PM AFF/rnr TD: 09/07/2016 16:23 JOB #: [id number] MEDICAL IMAGING REPORT Page 1 of 1 COPY
--- NOTE | ~2016-09-07 | CR229 ---
[facility] A Service of [facility] & [facility] RADIOLOGY TEXT RESULTS PATIENT: GERALD ARGUETA LOCATION: [facility] 305-01 : 42 UNIT #: [id number] AGE: [address]: April Wilson MD SEX: M ORDER DR: [id number] [facility] [address] [place], [place] [address] [id number] E MR#: [id number] Acc #: [id number] NAME: GERALD ARGUETA : 1940 SEX: M STUDY DATE/TIME: 09/07/2016 12:24 UNIT: [facility] ROOM: STUDY DESCRIPTION: CR Shoulder Min 2 View Lt Attending Physician: Jc Natarajan M.D. Ordering Physician: Jc Natarajan M.D. Primary Care Physician: Primary Care Physician No MEDICAL IMAGING REPORT This report is preliminary unless electronic signature is present EXAM Left shoulder 3 views 09/07/2016. HISTORY Left shoulder pain after a fall today. FINDINGS No evidence of fracture or dislocation. There is mild degenerative change. Dictated by... Italo Cortez M.D. THIS IS AN ELECTRONICALLY VERIFIED REPORT Italo Cortez M.D. at 09/11/2016 10:38 AM JR/rob TD: 09/07/2016 13:33 JOB #: [id number] MEDICAL IMAGING REPORT Page 1 of 1 COPY
--- NOTE | ~2016-09-07 | US140 ---
[facility] A Service [facility] RADIOLOGY TEXT RESULTS PATIENT: GERALD ARGUETA LOCATION: [facility] : 42 UNIT #: [id number] AGE: [address]: Elvin Benoit MD SEX: M ORDER DR: [id number] [facility] [address] [place], [place] [address] [id number] I MR#: [id number] Acc #: [id number] NAME: GERALD ARGUETA : 1940 SEX: M STUDY DATE/TIME: 09/13/2016 13:13 UNIT: [address] ROOM: [facility] STUDY DESCRIPTION: US UE Veins Unilat or Ltd Stdy Attending Physician: Elvin Benoit M.D. Ordering Physician: Elvin Benoit M.D. Primary Care Physician: No Primary Care Physician MEDICAL IMAGING REPORT This report is preliminary unless electronic signature is present EXAM Left upper extremity venous duplex scan. DATE OF EXAMINATION 09/13/2016 HISTORY Left arm pain and swelling for 6 months. EXAM High-resolution B-mode imaging and color flow Doppler analysis was performed of the deep and superficial veins of the left upper extremity. All veins are fully compressible with no intraluminal thrombus. Spontaneous and phasic flow is noted in the left internal jugular, subclavian, axillary, and brachial veins. The cephalic and basilic veins are also patent. IMPRESSION Normal venous examination of the left upper extremity. No deep or superficial vein thrombosis is demonstrated in the left arm. Dictated by... Brendan Padilla M.D. THIS IS AN ELECTRONICALLY VERIFIED REPORT Brendan Padilla M.D. at 09/14/2016 9:41 AM TAMIA/sandor TD: 09/13/2016 15:22 JOB #: [id number] [facility] A [facility] RADIOLOGY TEXT RESULTS PATIENT: GERALD ARGUETA LOCATION: [facility] : 42 UNIT #: [id number] AGE: [address]: Elvin Benoit MD SEX: M ORDER DR: MEDICAL IMAGING REPORT Page 1 of 1 COPY
--- NOTE | ~2016-09-07 | CO ---
Unit #: [id number] #: [id number] Patient: GERALD ARGUETA [id number] [facility] [place], [place] [address] [id number] I MR#: [id number] NAME: GERALD ARGUETA ROOM: 305 Age: 76 Sex: M Admission Date: 09/07/2016 : 1940 Attending Physician: Chantel Linares M.D. Consultation Date: 09/08/2016 CONSULTATION REPORT REASON FOR CONSULTATION Pneumonia/abnormal CAT scan. HISTORY OF PRESENT ILLNESS The patient is a 75-year-old, soon to be 76-year-old gentleman, who I saw in late June of this year. He had an abnormal CAT scan, treated for pneumonia. He was seen in the office and a CT scan was scheduled early September to follow up his infiltrates. He re-presents to the hospital with increasing shortness of breath and worsening left shoulder pain. CT scan at that time, showed increasing infiltrates in similar areas seen in June. He does have mucopurulent sputum. He denies fever, wheezing, chest pain, hemoptysis. Basically just increasing shortness of breath and his major complaint is left shoulder pain. Apparently, he was seen at [facility] and the only evaluation that he can remember was plain films of his shoulder that were "negative." He has had worsening pain and decreased range of motion. PAST MEDICAL HISTORY Remarkable for hypertension, COPD, gastroesophageal reflux, cardiac catheterization in the past, normal coronary arteries. MEDICATIONS Currently include vancomycin, Zosyn, Lovenox, Solu-Medrol, Dulera, Protonix, Claritin, Ecotrin, potassium protocol. ALLERGIES Codeine. SOCIAL HISTORY He stopped smoking many, many years ago. Does not drink alcohol. FAMILY HISTORY Tuberculosis in his mother. REVIEW OF SYSTEMS He has had weight loss which he cannot quantify. Again no hemoptysis or chest pain. He has had this shoulder pain. He has no difficulty swallowing. No abdominal pain, melena, hematuria, dysuria, focal weakness, paresthesias, leg pain, swelling. He did fall on his left shoulder, but his shoulder was hurting prior to the fall. Further review of systems negative. PHYSICAL EXAMINATION GENERAL: Reveals a patient, who is in no acute distress. Unit #: [id number] #: [id number] Patient: GERALD ARGUETA VITAL SIGNS: He is afebrile. Pulse 84, respiratory rate is 12 to 18, blood pressure is 131/74. 5 foot 7 and 164 pounds that is down approximately 10 pounds from June according to our records. HEENT: Pupils are equal, round, and reactive to light. Sclerae anicteric. Head atraumatic. 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 He does have natural teeth and borderline dentition. CHEST: Scattered crackles. There are some bronchial breath sounds left anterior chest. No definite wheeze. CARDIAC: Reveals regular rate and rhythm. No pathologic murmur, rub, or gallop. ABDOMEN: Soft and nontender. No hepatomegaly or rebound. EXTREMITIES: Reveal no clubbing, cyanosis, or edema. SKIN: He has a very large subcutaneous mass like area posterior shoulder, it is nontender. There are no skin changes. NEUROLOGIC: He cannot move his left arm other than a few degrees upward because of pain. DIAGNOSTIC STUDIES IMAGING STUDIES: Chest x-ray, increasing right and left pulmonary infiltrates. CT scan, increasing right and left pulmonary infiltrates. LABORATORY RESULTS: BUN is 18, creatinine is 0.8. BNP 32. Lactic acid 1.9. INR normal. Cardiac enzymes normal. White blood cell count 10. There is no eosinophilia. Platelet count normal. Hemoglobin 12.4. HIV in June was nonreactive. Urinalysis has not been performed. Blood cultures performed and are pending. No sputum has been collected. In June, it was normal karis. CARDIOVASCULAR STUDIES: EKG; sinus rhythm, a few PVCs. IMPRESSION 1. Abnormal CT scan with increasing infiltrates and mucopurulent sputum. I suspect infectious in etiology. Certainly, it is slow progression with relative lack of symptoms could be an indolent bacterial infection, consider fungal or mycobacterial disease. 2. Abnormal shoulder exam with increasing pain and tumor like area, left shoulder. 3. Chronic obstructive pulmonary disease without active bronchospasm. 4. Ptosis of the left eye, reportedly chronic. 5. Medical problems listed above. PLAN Lab workup including urine for hematuria, procalcitonin level, fungal studies. He will receive sputum for Gram stain and culture DAFNE as he is producing significant mucopurulent sputum which I witnessed. MRI of the left shoulder. I will discontinue his steroids given the chance that this could be a fungal or mycobacterial disease. He likely will need bronchoscopy. If he does need bronchoscopy on Sunday, I will ask Dr. Salguero who is covering the weekend to have the nurse shoe repair supervisor schedule bronchoscopy. Consider bone scan depending on the results of the MRI of his shoulder. Thank you very much for allowing me to participate in the care of Mr. Argueta. Dictated by... Unit #: [id number] #: [id number] Patient: ARGUETAGERALD M.D. WOL/paul TD: 09/09/2016 05:56 JOB #: [id number] CONSULTATION REPORT Page 1 of 1 X Alex Wright MD X CONSULTATION REPORT
--- NOTE | ~2016-09-07 | EKG ---
PATIENT: GERALD ARGUETA UNIT #: [id number] Ventricular Rate: 84 BPM Atrial Rate: 84 BPM P-R Interval: 126 ms QRS Duration: 96 ms Q-T Interval: 382 ms QTC Calculation(Bezet): 451 ms P [place]: 18 degrees Calculated R [place]: -7 degrees Calculated T [place]: 68 degrees Diagnosis Line: Sinus rhythm with occasional Premature ventricular Diagnosis Line: complexes Diagnosis Line: Left ventricular hypertrophy with repolarization Diagnosis Line: abnormality Diagnosis Line: Abnormal ECG Diagnosis Line: When compared with ECG of 28-JUN-2016 22:17, Diagnosis Line: Premature ventricular complexes are now Present Diagnosis Line: Confirmed by SHAHZAD LAWSON MD ([id number]) on 09/10/2016 Diagnosis Line: 3:58:46 PM INTERPRETING MD: RENNY ANDREA
--- NOTE | ~2016-09-07 | CR72 ---
[facility] A Service of [facility] & [facility] RADIOLOGY TEXT RESULTS PATIENT: GERALD ARGUETA LOCATION: [facility] 305-01 : 42 UNIT #: [id number] AGE: [address]: April Wilson MD SEX: M ORDER DR: [id number] [facility] [address] [place], [place] [address] [id number] E MR#: [id number] Acc #: [id number] NAME: GERALD ARGUETA. : 1940 SEX: M STUDY DATE/TIME: 09/07/2016 12:23 UNIT: [facility] ROOM: STUDY DESCRIPTION: CR Chest Single View Portable Attending Physician: Jc Natarajan M.D. Ordering Physician: Jc Natarajan M.D. Primary Care Physician: Primary Care Physician No MEDICAL IMAGING REPORT This report is preliminary unless electronic signature is present EXAM Portable chest one-view, 09/07/2016 COMPARISON 06/28/2016 HISTORY Short of air and cough, left shoulder pain after a fall today. FINDINGS Extensive bilateral infiltrates are seen, overall fairly similar in distribution to findings on 06/28/2016 though lung aeration is overall worse and infiltrates appear increased. Right lateral and lower lung and left mid lung infiltrates are redemonstrated. There is vascular congestion along with borderline to mild cardiomegaly. There is no pneumothorax. Dictated by... Italo Cortez M.D. THIS IS AN ELECTRONICALLY VERIFIED REPORT Italo Cortez M.D. at 09/11/2016 10:38 AM JR/suresh TD: 09/07/2016 13:26 JOB #: [id number] MEDICAL IMAGING REPORT Page 1 of 1 COPY
--- NOTE | ~2016-09-07 | OR ---
Unit #: [id number] #: [id number] Patient: GERALD ARGUETA [id number] [address] [address] [id number] I MR#: [id number] NAME: GERALD ARGUETA. ROOM: [facility] Date of Procedure: 09/12/2016 Admission Date: 09/07/2016 Surgeon: Alex Wright M.D. : 1940 Attending Physician: Elvin Benoit M.D. OPERATIVE REPORT PROCEDURE PERFORMED Flexible fiberoptic bronchoscopy. INDICATION FOR PROCEDURE Abnormal CAT scan. FINDINGS No endobronchial lesions seen. Fairly unremarkable airways. SEDATION MAC. Please see their records. COMPLICATIONS Zero. CONDITION Stable to recovery room. DESCRIPTION OF PROCEDURE The patient was brought to the endoscopy suite and monitored for heart rate, blood pressure, saturations, end-tidal CO2. Sedated with MAC. Anesthetized both nares with 2% lidocaine. Viscous lidocaine was applied to his right naris. Bronchoscope was introduced without difficulty. Vocal cords were visualized. They were in normal configuration and motion, anesthetized x2. Main trachea was intubated. Airways were anesthetized. No significant erythema. No tumor identified. No endobronchial lesions identified. BAL was performed in the right middle lobe in usual fashion with 60 mL aliquots instilled x2 with very good return. Of note, all subsegments were identified. Bronchoscope was removed without difficulty, and the patient was in stable condition to recovery room. Dictated by... Darcy Honeycutt/paul TD: 09/13/2016 01:04 JOB #: [id number] Unit #: [id number] #: [id number] Patient: GERALD ARGUETA OPERATIVE REPORT Page 1 of 1 X Alex Wright MD X PROCEDURE OPERATIVE NOTE
--- NOTE | ~2016-09-07 | XA57 ---
[facility] A Service [facility] RADIOLOGY TEXT RESULTS PATIENT: GERALD ARGUEAT LOCATION: [facility] 305- : 42 UNIT #: [id number] AGE: [address]: Elvin Benoit MD SEX: M ORDER DR: [id number] [facility] [place], [place] [address] [id number] I MR#: [id number] Acc #: [id number] NAME: GERALD ARGUETA : 1940 SEX: M STUDY DATE/TIME: 09/13/2016 12:42 UNIT: [address] ROOM: [facility] STUDY DESCRIPTION: XA BX Perc Muscle Attending Physician: Elvin Benoit M.D. Ordering Physician: Elvin Benoit M.D. Primary Care Physician: No Primary Care Physician MEDICAL IMAGING REPORT This report is preliminary unless electronic signature is present PROCEDURE Ultrasound guided biopsy of a posterior left shoulder mass. INDICATIONS 76-year-old male with a history of a mass in the musculature posterior to his left shoulder which on MRI was suspicious for the possibility of malignancy. Biopsy was requested. The risks, benefits and alternatives of the procedure were discussed with the patient and informed consent was obtained. In the procedure room, a time-out was performed confirming correct patient and procedure. All elements of maximum sterile-barrier technique utilized according to guidelines appropriate for the procedure. TECHNIQUE/FINDINGS Ultrasound of the musculature posterior to the left scapula was performed demonstrating a hypodense mass which correlated with the mass on the MRI. The overlying skin was prepped and draped in the usual sterile fashion. 1% lidocaine was utilized to anesthetize the skin and underlying subcutaneous tissues. Next, under ultrasound guidance, 2 core biopsies of the mass were obtained with an 18-gauge needle and sent to pathology. Needle was removed and a sterile dressing was applied. No immediate complications. IMPRESSION Technically successful ultrasound-guided biopsy of a posterior left shoulder mass. Dictated by... Zack Willett M.D. THIS IS AN ELECTRONICALLY VERIFIED REPORT [facility] A Service [facility] RADIOLOGY TEXT RESULTS PATIENT: GERALD ARGUETA LOCATION: [facility] 305-01 : 42 UNIT #: [id number] AGE: [address]: Elvin Benoit MD SEX: M ORDER DR: Zack Willett M.D. at 09/14/2016 4:53 PM NIRAV/sandor TD: 09/13/2016 19:53 JOB #: [id number] MEDICAL IMAGING REPORT Page 1 of 1 COPY
--- NOTE | ~2016-09-07 | MR164 ---
[facility] A Service of [facility] RADIOLOGY TEXT RESULTS PATIENT: GERALD ARGUETA LOCATION: [facility] 305- : 42 UNIT #: [id number] AGE: [address]: Chantel Linares MD SEX: M ORDER DR: [id number] [facility] [address] [place], [place] [address] [id number] I MR#: [id number] Acc #: [id number] NAME: GERALD ARGUETA : 1940 SEX: M STUDY DATE/TIME: 09/09/2016 9:15 [facility] STUDY DESCRIPTION: MR Shoulder Wo Contrast Lt Attending Physician: Chantel Linares M.D. Ordering Physician: Chantel Lianres M.D. Primary Care Physician: Primary Care Physician No MRI CENTER REPORT This report is preliminary unless electronic signature is present. EXAM Left shoulder MRI without contrast 09/09/2016 HISTORY 76-year-old male with left shoulder pain and limited range of motion for 2 months. No prior left shoulder surgery COMPARISON Left shoulder x-rays 09/07/2016, CT chest 06/29/2016, CT chest 09/07/2016. TECHNIQUE Routine unenhanced multiplanar, multisequence high field MR imaging left shoulder was performed. FINDINGS There is mild supraspinatus and infraspinatus tendinopathy without evidence of tear. Teres minor and subscapularis tendons are intact. Long biceps tendon is intact and well positioned in the bicipital groove. Mild labral degeneration. No evidence of a displaced labral tear. Glenohumeral articular cartilage appears intact. No significant glenohumeral effusion. Mild degenerative change of the acromioclavicular joint. There is some mild inflammation of subacromial/subdeltoid bursa. There is a partially imaged mass along the superomedial border of the scapula which may involve the bone. This measures at least 4.2 x 3.4 cm in cross section and 4.6 cm in CC dimension. This is associated with diffuse edema throughout the infraspinatus and subscapularis muscles with mild edema in the supraspinatus muscle. The edema could be related to the mass or possibly denervation as a result of the mass location. This is highly concerning for metastatic disease or primary malignancy. Further STS. [facility] A Service of [facility] RADIOLOGY TEXT RESULTS PATIENT: GERALD ARGUETA LOCATION: [facility] 305-01 : 42 UNIT #: [id number] AGE: [address]: Chantel Linares MD SEX: M ORDER DR: characterization with PET CT may be of benefit. The remainder of the bone marrow signal is within expected limits. IMPRESSION 1. Partially imaged mass abutting the superomedial border of the scapula, possibly involving the bone. The mass measures at least 4.2 x 3.4 cm in cross section and 4.6 cm in CC dimension. Again, the mass is only partially imaged on this examination. This is highly concerning for malignancy or metastatic disease. Further characterization with PET CT and/or dedicated contrast-enhanced scapular MRI may be of benefit. This is associated with diffuse edema throughout the subscapularis and infraspinatus muscles as well as mild edema in the supraspinatus muscles. The edema could be secondary to denervation as a result of the location of the mass versus edema directly related to the presence of the mass. 2. Mild supraspinatus and infraspinatus tendinopathy. No evidence of a rotator cuff tear. 3. Mild generalized labral degeneration. 4. No glenohumeral effusion. 5. Mild inflammation subacromial/subdeltoid bursa. Dictated by... Sandoval Saunders M.D. THIS IS AN ELECTRONICALLY VERIFIED REPORT Sandoval Saunders M.D. at 09/10/2016 8:10 AM Baldev TD: 09/09/2016 14:58 JOB #: [id number] MRI CENTER REPORT Page 1 of 1 COPY
[~2016-09-07 10:57] MED LIST changes: +ASPIRIN EC81 M1 PO; +LEVAQUIN750 MG PO; +PREDNISONE PO; +PROVENTIL5 MG/ML INH
[2016-09-07 11:57] LABS: BASOPHIL% 0.5 % (0-2.5); EOSINOPHIL# 0.1 X10e3 (0-0.7); EOSINOPHIL% 0.8 % (0.0-7.0); HEMATOCRIT 37.7 % (38.0-50.0); HEMOGLOBIN 12.4 gm/dL (13.0-16.0); LYMPHOCYTE# 0.9 X10e3 (1.0-3.5); LYMPHOCYTE% 8.8 % (17.0-45.0); MEAN CELL VOLUME 88.5 FL (83-96); MEAN CORPUSCULAR HGB CONC 32.8 g/dL (30-36); MONOCYTE# 0.7 X10e3 (0-1.0); MONOCYTE% 7.3 % (3.0-12.0); NEUTROPHIL# 8.3 X10e3 (1.5-7.1); NEUTROPHIL% 82.6 % (40-75); PLATELET COUNT 373 X10e3 (140-420); RED BLOOD COUNT 4.26 X10e (3.90-5.60); RED CELL DISTRIBUTION WIDTH 14.2 % (11.0-15.5)
[2016-09-07 11:59] LABS: DIFF IND NO
[2016-09-07 12:04] LABS: POC - TROPONIN <0.05 ng/mL (<=0.05)
[2016-09-07 12:13] LABS: INR 1.1; PROTHROMBIN TIME (PATIENT) 11.5 SECONDS (9.6-11.5)
[2016-09-07 12:32] LABS: ALBUMIN SERUM 2.8 g/dL (3.5-5.0); BILIRUBIN, DIRECT 0.3 mg/dL (0.0-0.2); BILIRUBIN,INDIRECT 0.6 mg/dL (0.0-0.9); BILIRUBIN,TOTAL 0.9 mg/dL (0.2-2.0); BUN/CREATININE RATIO 22.5; CALCIUM SERUM 8.8 mg/dL (8.4-10.2); CREATININE SERUM 0.8 mg/dL (0.6-1.4); GLOM FILT RATE Estimated 88.7 mL/min (>60); PROTEIN TOTAL SERUM 7.3 g/dL (6.0-8.3)
[2016-09-07 12:37] LABS: POTASSIUM 2.6 mmol/L (3.5-5.1)
[2016-09-07 13:08] LABS: POC - CKMB 2.6 ng/mL (0.0-7.9); POC - TROPONIN <0.05 ng/mL (<=0.05)
[2016-09-07] MEDS ORDERED: LO-DOSE ASPIRIN81 M1 PO (15:34)
[2016-09-07] MEDS ORDERED: CLARITIN10 M3 PO (15:34)
[2016-09-07] MEDS ORDERED: PROTONIX PO (15:34)
[2016-09-07] MEDS ORDERED: ALBUTEROL17 GM INH (15:35)
[2016-09-07] MEDS ORDERED: BREO ELLIPTA 11 EACH INH (15:35)
[2016-09-08 22:29] LABS: URINE APPEARANCE CLEAR; URINE BILIRUBIN NEG (NEG); URINE BLOOD TRACE (NEG); URINE COLOR YELLOW; URINE GLUCOSE NEG (NEG); URINE KETONE TRACE (NEG); URINE LEUKOCYTE ESTERASE NEG (NEG); URINE NITRATE NEG (NEG); URINE PH 5.5 (5-8); URINE PROTEIN TRACE (NEG); URINE SPECIFIC GRAVITY 1.032 (1.003-1.035)
[2016-09-08 22:32] LABS: URINE BACTERIA AUWI NEG (NEGATIVE); URINE SQUAMOUS EPITHELIAL CELL NONE SEEN /[HPF]; UWBCS1 AUWI 0-2 (0-5)
[2016-09-09 05:58] LABS: HEMATOCRIT 34.4 % (38.0-50.0); HEMOGLOBIN 11.2 gm/dL (13.0-16.0); MEAN CELL VOLUME 86.5 FL (83-96); MEAN CORPUSCULAR HEMOGLOBIN 28.2 PG (28-34); MEAN CORPUSCULAR HGB CONC 32.6 g/dL (30-36); MEAN PLATELET VOLUME 6.8 FL (6.5-11.5); RED BLOOD COUNT 3.98 X10e (3.90-5.60); RED CELL DISTRIBUTION WIDTH 14.5 % (11.0-15.5); WHITE BLOOD COUNT 12.1 X10e3 (4.0-10.5)
[2016-09-09 07:00] LABS: ALBUMIN SERUM 2.5 g/dL (3.5-5.0); BILIRUBIN,TOTAL 0.4 mg/dL (0.2-2.0); BUN/CREATININE RATIO 34.28; CALCIUM SERUM 8.5 mg/dL (8.4-10.2); CREATININE SERUM 0.7 mg/dL (0.6-1.4); POTASSIUM 3.6 mmol/L (3.5-5.1); PROTEIN TOTAL SERUM 6.3 g/dL (6.0-8.3)
[2016-09-09 08:29] LABS: LEGIONELLA AG URINE NEG (NEG)
[2016-09-10 05:58] LABS: MAGNESIUM 1.7 mg/dL (1.6-3.0); POTASSIUM 3.8 mmol/L (3.5-5.1)
[2016-09-11 06:50] LABS: HEMATOCRIT 34.5 % (38.0-50.0); HEMOGLOBIN 11.3 gm/dL (13.0-16.0); MEAN CELL VOLUME 88.1 FL (83-96); MEAN CORPUSCULAR HEMOGLOBIN 28.9 PG (28-34); MEAN CORPUSCULAR HGB CONC 32.8 g/dL (30-36); MEAN PLATELET VOLUME 6.7 FL (6.5-11.5); RED BLOOD COUNT 3.92 X10e (3.90-5.60); WHITE BLOOD COUNT 9.8 X10e3 (4.0-10.5)
[2016-09-11 07:36] LABS: ALBUMIN SERUM 2.4 g/dL (3.5-5.0); BILIRUBIN,TOTAL 0.5 mg/dL (0.2-2.0); BUN/CREATININE RATIO 28.33; CALCIUM SERUM 8.3 mg/dL (8.4-10.2); CREATININE SERUM 0.6 mg/dL (0.6-1.4); GLOM FILT RATE Estimated 99.1 mL/min (>60); MAGNESIUM 2.2 mg/dL (1.6-3.0); POTASSIUM 3.9 mmol/L (3.5-5.1); PROTEIN TOTAL SERUM 5.9 g/dL (6.0-8.3)
[2016-09-12 05:20] LABS: HEMATOCRIT 34.8 % (38.0-50.0); HEMOGLOBIN 11.3 gm/dL (13.0-16.0); MEAN CELL VOLUME 88.1 FL (83-96); MEAN CORPUSCULAR HEMOGLOBIN 28.6 PG (28-34); MEAN CORPUSCULAR HGB CONC 32.4 g/dL (30-36); MEAN PLATELET VOLUME 7.2 FL (6.5-11.5); RED BLOOD COUNT 3.94 X10e (3.90-5.60); RED CELL DISTRIBUTION WIDTH 14.5 % (11.0-15.5); WHITE BLOOD COUNT 9.4 X10e3 (4.0-10.5)
[2016-09-12 05:54] LABS: CALCIUM SERUM 8.6 mg/dL (8.4-10.2); CREATININE SERUM 0.7 mg/dL (0.6-1.4); POTASSIUM 4.6 mmol/L (3.5-5.1)
[2016-09-12 15:28] LABS: BODY FLUID APPEARANCE HAZY; BODY FLUID SOURCE BRONCHIAL LAVAGE
[2016-09-13 04:29] LABS: HEMATOCRIT 33.7 % (38.0-50.0); HEMOGLOBIN 10.8 gm/dL (13.0-16.0); MEAN CELL VOLUME 88.1 FL (83-96); MEAN CORPUSCULAR HEMOGLOBIN 28.2 PG (28-34); MEAN PLATELET VOLUME 6.6 FL (6.5-11.5); RED BLOOD COUNT 3.83 X10e (3.90-5.60); RED CELL DISTRIBUTION WIDTH 14.6 % (11.0-15.5)
[2016-09-13 04:32] LABS: WHITE BLOOD COUNT 14.3 X10e3 (4.0-10.5)
[2016-09-13 04:58] LABS: ALBUMIN SERUM 2.5 g/dL (3.5-5.0); BILIRUBIN,TOTAL 0.2 mg/dL (0.2-2.0); BUN/CREATININE RATIO 41.42; CALCIUM SERUM 8.5 mg/dL (8.4-10.2); CREATININE SERUM 0.7 mg/dL (0.6-1.4); POTASSIUM 4.4 mmol/L (3.5-5.1); PROTEIN TOTAL SERUM 6.4 g/dL (6.0-8.3)
[2016-09-13 11:19] LABS: THYROID STIMULATING HORMONE 0.73 uIU/ml (0.34-5.60)
[2016-09-13 11:26] LABS: CK TOTAL 16 IU/L (36-174)
[2016-09-13 11:26] LABS: FREE THYROXIN (T4) 1.4 ng/dL (0.58-1.64)
[2016-09-13 12:56] LABS: INR 1.1; PARTIAL THROMBOPLASTIN TIME 23.7 SECONDS (23.5-31.3); PROTHROMBIN TIME (PATIENT) 11.4 SECONDS (9.6-11.5)
[2016-09-13 16:29] LABS: ASPERGILLUS FLAVUS Negative (Negative); ASPERGILLUS FUMIGATUS Negative (Negative); ASPERGILLUS NIGER Negative (Negative); BLASTOMYCES ANTIBODY Negative (Negative); COCCIDIODES ANTIBODY Negative (Negative); CRYPTOCOCCAL AB <1:2 (()); CRYPTOCOCCAL AG SCREEN SOURCE Serum (()); CRYPTOCOCCAL SCREEN Not Detected (Not Detected); HISTOPLASMA AB Negative (Negative)
[2016-09-15 10:32] LABS: BASOPHIL% 0.1 % (0-2.5); HEMATOCRIT 35.8 % (38.0-50.0); HEMOGLOBIN 11.5 gm/dL (13.0-16.0); LYMPHOCYTE# 0.5 X10e3 (1.0-3.5); LYMPHOCYTE% 2.9 % (17.0-45.0); MEAN CELL VOLUME 87.5 FL (83-96); MEAN CORPUSCULAR HEMOGLOBIN 28.2 PG (28-34); MEAN CORPUSCULAR HGB CONC 32.3 g/dL (30-36); MEAN PLATELET VOLUME 6.7 FL (6.5-11.5); MONOCYTE# 1.1 X10e3 (0-1.0); MONOCYTE% 6.5 % (3.0-12.0); NEUTROPHIL# 14.8 X10e3 (1.5-7.1); NEUTROPHIL% 90.5 % (40-75); PLATELET COUNT 443 X10e3 (140-420); RED BLOOD COUNT 4.09 X10e (3.90-5.60); RED CELL DISTRIBUTION WIDTH 14.5 % (11.0-15.5); WHITE BLOOD COUNT 16.4 X10e3 (4.0-10.5)
[2016-09-15 10:33] LABS: DIFF IND YES
[2016-09-15 11:16] LABS: CALCIUM SERUM 8.8 mg/dL (8.4-10.2); CREATININE SERUM 0.8 mg/dL (0.6-1.4); PLATELET ESTIMATE NORMAL (NORMAL); POTASSIUM 4.4 mmol/L (3.5-5.1); RBC NORMAL YES
[2016-09-15] MEDS ORDERED: K-LOR HOSPITAL20 ME1 PO (18:49)
[2016-09-15] MEDS ORDERED: PREDNISONE10 M1 PO (18:52)
== END 2016-09-15 20:40 | disposition home or self-care (01) | DRG 166 ==
LOC: CED 10:57 → CEDOF 15:00 → C3A PCU 15:00 → CEDOF 15:44 → CED 15:44 → CEDOF 09-08 07:06 → C3A PCU 09-08 07:43
PROVIDERS: Emergency Medicine; Internal Medicine
PROC: B32TYZZ Computerized Tomography (CT Scan) of Left Pulmonary Artery using Other Contrast (ICD-10-PCS; principal; 2016-09-07)
PROC: B32SYZZ Computerized Tomography (CT Scan) of Right Pulmonary Artery using Other Contrast (ICD-10-PCS; 2016-09-07)
PROC: 0BB58ZX Excision of Right Middle Lobe Bronchus, Via Natural or Artificial Opening Endoscopic, Diagnostic (ICD-10-PCS; 2016-09-12)
PROC: 0B9D8ZX Drainage of Right Middle Lung Lobe, Via Natural or Artificial Opening Endoscopic, Diagnostic (ICD-10-PCS; 2016-09-12 13:00)
PROC: 0JBF3ZX Excision of Left Upper Arm Subcutaneous Tissue and Fascia, Percutaneous Approach, Diagnostic (ICD-10-PCS; 2016-09-13)
DX: J96.21 Acute and chronic respiratory failure with hypoxia (principal); J18.9 Pneumonia, unspecified organism; C79.2 Secondary malignant neoplasm of skin; J44.1 Chronic obstructive pulmonary disease with (acute) exacerbation; I34.1 Nonrheumatic mitral (valve) prolapse; E87.6 Hypokalemia; I10 Essential (primary) hypertension; K21.9 Gastro-esophageal reflux disease without esophagitis; Z87.891 Personal history of nicotine dependence; Z79.82 Long term (current) use of aspirin; H02.402 Unspecified ptosis of left eyelid; M79.89 Other specified soft tissue disorders; M50.30 Other cervical disc degeneration, unspecified cervical region
CPT/HCPCS: 36415; 71010; 71275; 72040; 73030; 73221; 73223; 76942; 80048; 80053; 80076; 81003; 82150; 82308; 82550; 82553; 83605; 83690; 83735; 83880; 84132; 84439; 84443; 84484; 85025; 85027; 85379; 85610; 85730; 86606; 86612; 86631; 86698; 87040; 87070; 87102; 87106; 87116; 87205; 87206; 87305; 87449; 87899; 88108; 88305; 88341; 88342; 89051; 93005; 93971; 94640; 94760; 96365; 96366; 96375; 97163; 97166; 97530; 97535; 99285; A9577; C1751; C1769; G8987-GO; G8988-GO; G8990-GP; G8991-GP; G8992-GP; J0171; J0456; J0692; J1650; J1885; J2405; J2543; J2920; J2930; J3370; J3475; Q9967

== ENCOUNTER 2016-10-11 01:04 | Inpatient (IN) | payer OTHER ==
--- NOTE | ~2016-10-11 | CR72 ---
[facility] A Service of [facility] RADIOLOGY TEXT RESULTS PATIENT: GERALD ARGUETA LOCATION: [facility] 311-01 : 42 UNIT #: [id number] AGE: [address]: April Wilson MD SEX: M ORDER DR: [id number] [facility] [address] [place], [place] [address] [id number] MR#: [id number] Acc #: [id number] NAME: GERALD ARGUETA. : 1940 SEX: M STUDY DATE/TIME: 10/11/2016 2:04 [facility] 04210 STUDY DESCRIPTION: CR Chest Single View Portable Attending Physician: Elvin Benoit M.D. Ordering Physician: Andres Watts Aprn Primary Care Physician: Primary Care Physician No MEDICAL IMAGING REPORT This report is preliminary unless electronic signature is present EXAM Chest x-ray, 10/11/2016 HISTORY 76-year-old male with history of metastatic colon cancer presenting to the ED complaining of shortness of air, cough and congestion. TECHNIQUE AP portable chest x-ray. FINDINGS Multifocal peripheral airspace consolidation is seen in the upper and lower lungs bilaterally, unchanged since chest x-ray 09/07/2016 and best demonstrated on chest CT of the same date. Reticulonodular interstitial changes throughout both lungs are also stable. Heart size normal. Low lung volumes. Benign calcified thoracic granulomas in the right upper lung and right hilum. IMPRESSION Stable chest x-ray, unchanged since 09/07/2016. Dictated by... Jasson Kemp M.D. THIS IS AN ELECTRONICALLY VERIFIED REPORT Jasson Kemp M.D. at 10/11/2016 9:57 PM DONALD/carlin TD: 10/11/2016 03:38 JOB #: [id number] [facility] A Service [facility] RADIOLOGY TEXT RESULTS PATIENT: GERALD ARGUETA LOCATION: [facility] 311- : 42 UNIT #: [id number] AGE: [address]: April Wilson MD SEX: M ORDER DR: MEDICAL IMAGING REPORT Page 1 of 1 COPY
--- NOTE | ~2016-10-11 | EKG ---
PATIENT: GERALD ARGUETA UNIT #: [id number] Ventricular Rate: 96 BPM Atrial Rate: 96 BPM P-R Interval: 120 ms QRS Duration: 88 ms Q-T Interval: 312 ms QTC Calculation(Bezet): 394 ms P [place]: 24 degrees Calculated R [place]: -5 degrees Calculated T [place]: 72 degrees Diagnosis Line: Normal sinus rhythm Diagnosis Line: Normal ECG Diagnosis Line: When compared with ECG of 07-SEP-2016 11:39, Diagnosis Line: Premature ventricular complexes are no longer Diagnosis Line: Present Diagnosis Line: QT has shortened Diagnosis Line: Confirmed by KINZA OSPINA MD ([id number]) on 10/12/2016 Diagnosis Line: 6:25:28 PM INTERPRETING MD: ANAI ANDREA
--- NOTE | ~2016-10-11 | HP ---
Unit #: [id number] #: [id number] Patient: GERALD ARGUETA [id number] [facility] [address]. [place], [place] [address] [id number] I MR#: [id number] NAME: GERALD ARGUEAT. ROOM: 311 Age: 76 Sex: M Admission Date: 10/11/2016 : 1940 Attending Physician: April Wilson M.D. Primary Care Physician: No Primary Care Physician HISTORY AND PHYSICAL DIAGNOSES ON ADMISSION 1. Acute respiratory failure. 2. Pneumonia. 3. Stage 4 lung cancer. HISTORY OF PRESENT ILLNESS This 76-year-old male presented to [facility] with shortness of air. As per patient, he was in his usual state of health when he developed increased shortness of air over last 2 days, which progressively worsened to the degree that he was not able to move around without getting short of breath. Patient stated that he is also having productive cough with yellow sputum. Patient denies having fever. Patient states that he is having increased anxiety as well. There is no history of chest pain, tightness, or heaviness. There is no history of blood in urine or stools. The patient admits that he has lost significant weight over last few weeks. He complains of decreased appetite. Rest of the review of systems is negative. PAST MEDICAL HISTORY 1. Patient was recently diagnosed with stage 4 lung cancer as per patient. He was admitted in [facility] from September 07 to September 15 and had a left scapular mass, which was concerning for malignancy and had a biopsy done at that time, which was positive for an infiltrating neoplasm. 2. COPD. 3. Gastroesophageal reflux disease. 4. Hypertension. PAST SURGICAL HISTORY History of multiple surgeries for cleft palate and carpal tunnel release. SOCIAL HISTORY Patient live with his and son. He quit smoking around 50 years ago. Denies drinking. FAMILY HISTORY Patient's father of prostate cancer. Mother had TB. ALLERGIES Patient allergic to codeine. HOME MEDICATIONS Patient is on: 1. Protonix 40 mg p.o. daily. Unit #: [id number] #: [id number] Patient: GERALD ARGUETA 2. Claritin 10 mg p.o. daily. 3. Morphine sulfate 30 mg p.o. b.i.d. 4. Oxycodone 5 mg 4 times a day. PHYSICAL EXAMINATION GENERAL APPEARANCE: Patient is sitting in bed. Breathing is mildly labored. VITAL SIGNS: Reveal temperature 97.5, pulse is 84 per minute, respiratory rate is 22 per minute, and blood pressure is 130/61. HEENT: Revealed no conjunctival congestion. Sclerae are nonicteric. NECK: Supple. Trachea is central. RESPIRATORY: Revealed decreased breath sounds bilaterally. There are bilateral rhonchi and crackles present. SKIN: Warm and dry. CARDIOVASCULAR: Tachycardic. S1 and S2. ABDOMEN: Soft and nontender. Bowel sounds are present. NEUROLOGIC: Patient is able to move all extremities. DIAGNOSTIC STUDIES LABORATORY: On admission, patient's creatinine is 0.7, sodium 138, and potassium is 4.6. WBC is 9.5, hemoglobin is 9.6, and platelet count is 361. Troponin is less than 0.03. IMAGING: Chest x-ray reveals multifocal peripheral airspace consolidation. ASSESSMENT AND PLAN This 76-year-old male presented to the hospital with shortness of air. 1. Acute respiratory failure. Patient is on O2. He has likely underlying pneumonia. 2. Pneumonia. Patient is on Zosyn and vancomycin. Will request Dr. Wright to see patient in consultation. 3. Stage [address] Will have Dr. Broussard to see patient in consultation. 4. Patient's pain controlled. Will continue the home medications. 5. We will have patient on DuoNeb scheduled. 6. We will discuss goals of care with patient and family. Dictated by Darcy Stock TD: 10/11/2016 13:40 JOB #: [id number] HISTORY AND PHYSICAL Page 1 of 1 X April Wilson MD HISTORY AND PHYSICAL
--- NOTE | ~2016-10-11 | DS ---
Unit #: [id number] #: [id number] Patient: GERALD ARGUETA [id number] [facility] [address]. [place], [place] [address] [id number] I MR#: [id number] NAME: GERALD ARGUETA. ROOM: [facility] Age: 76 Sex: M Admission Date: 10/11/2016 : 1940 Discharge Date: 10/13/2016 Attending Physician: April Wilson M.D. Primary Care Physician: Beckie Primary Care Physician DISCHARGE SUMMARY SUMMARY DATE OF 10/13/2016 HOSPITAL COURSE This is a 76-year-old male who was recently diagnosed with metastatic lung cancer. Presented to hospital with shortness of air. Details are as per admission H and P. Patient was admitted (1) for acute respiratory failure and pneumonia. The patient's condition continued to deteriorate. Therefore, after discussing with patient's family, Dr. Broussard requested hospice consult and patient was made comfort care only. Hospice saw patient and, as patient was dying actively, they recommended to keep patient here at [facility]. Patient was treated with comfort meds and he peacefully on 10/13/2016. Dictated by... Darcy Stock/loli TD: 10/14/2016 10:48 JOB #: [id number] DISCHARGE SUMMARY Page 1 of 1 X April Wilson MD X DISCHARGE SUMMARY
--- NOTE | ~2016-10-11 | CO ---
Unit #: [id number] #: [id number] Patient: GERALD ARGUETA [id number] [address] [address] [id number] I MR#: [id number] NAME: GERALD ARGUETA. ROOM: [facility] Age: 76 Sex: M Admission Date: 10/11/2016 : 1940 Attending Physician: April Wilson M.D. Primary Care Physician: Elvin Benoit M.D. Consultation Date: 10/11/2016 CONSULTATION REPORT REASON FOR EVALUATION Metastatic disease, respiratory failure, please evaluate. HISTORY OF PRESENT ILLNESS Patient is a 76-year-old gentleman well known to us who presented with respiratory failure and scapular lesion about a month ago. 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 He subsequently had a PET scan in our office which showed very extensive metastatic disease, and all the markings including ALK, eGFR, and PD-L1 were all negative. So, he was due to have palliative chemotherapy next week. He presents now with progressive weakness, shortness of breath, and appears preterminal. PAST MEDICAL HISTORY 1. Hypertension. 2. Chronic bronchitis. 3. Chronic obstructive pulmonary disease. ALLERGIES Codeine. CHRONIC MEDICATIONS Please note: This report has been placed on the patient's electronic medical record in an incomplete status following multiple physician notifications for a completion without a response or resolution. Dictated by... Darcy Mcguire/noemi TD: 10/11/2016 20:57 JOB #: [id number] Unit #: [id number] #: [id number] Patient: GERALD ARGUETA CONSULTATION REPORT Page 1 of 1 X Enio Broussard MD CONSULTATION REPORT
[~2016-10-11 01:04] MED LIST changes: +ALBUTEROL17 GM INH; +BREO ELLIPTA 11 EACH INH; +CLARITIN10 M3 PO; +K-LOR HOSPITAL20 ME1 PO; +LO-DOSE ASPIRIN81 M1 PO; +PREDNISONE10 M1 PO; +PROTONIX PO
[2016-10-11 02:08] LABS: ARTERIAL BLOOD GAS pH 7.407 (7.350-7.450)
[2016-10-11 02:09] LABS: ARTERIAL BLD GAS O2 SATURATION 91.8 % (90.0-100.0); ARTERIAL BLOOD GAS ALLEN TEST NORMAL; ARTERIAL BLOOD GAS ART SITE RIGHT RADIAL; ARTERIAL BLOOD GAS CARBOXY HB 1.6 %sat (0.0-9.0); ARTERIAL BLOOD GAS DELIVERY NASAL CANNULA; ARTERIAL BLOOD GAS MET HB 0.7 %sat (0.0-2.0); ARTERIAL BLOOD GAS PCO2 66.8 mmHg (35.0-45.0); ARTERIAL BLOOD GAS PO2 70.1 mmHg (80.0-100); ARTERIAL DRAW? YES
[2016-10-11 02:42] LABS: BASOPHIL# 0.1 X10e3 (0-0.3); BASOPHIL% 0.5 % (0-2.5); DIFF IND NO; EOSINOPHIL% 0.1 % (0.0-7.0); LYMPHOCYTE% 10.3 % (17.0-45.0); MEAN CORPUSCULAR HEMOGLOBIN 28.3 PG (28-34); MEAN CORPUSCULAR HGB CONC 32.1 g/dL (30-36); MEAN PLATELET VOLUME 6.5 FL (6.5-11.5); MONOCYTE# 0.8 X10e3 (0-1.0); MONOCYTE% 7.6 % (3.0-12.0); NEUTROPHIL# 8.2 X10e3 (1.5-7.1); NEUTROPHIL% 81.5 % (40-75); PLATELET COUNT 413 X10e3 (140-420); RED BLOOD COUNT 3.52 X10e (3.90-5.60); RED CELL DISTRIBUTION WIDTH 15.5 % (11.0-15.5)
[2016-10-11] MEDS ORDERED: MORPHINE SULFAT15 MG PO (03:03)
[2016-10-11] MEDS ORDERED: OXYCODONE HCL5 M1 PO (03:04)
[2016-10-11 03:05] LABS: ALBUMIN SERUM 1.9 g/dL (3.5-5.0); BILIRUBIN, DIRECT 0.4 mg/dL (0.0-0.2); BILIRUBIN,INDIRECT 0.6 mg/dL (0.0-0.9); BUN/CREATININE RATIO 32.5; CALCIUM SERUM 8.2 mg/dL (8.4-10.2); CREATININE SERUM 0.8 mg/dL (0.6-1.4); POTASSIUM 4.5 mmol/L (3.5-5.1); PROTEIN TOTAL SERUM 6.7 g/dL (6.0-8.3)
[2016-10-11 03:55] LABS: POC - CKMB <1.0 ng/mL (0.0-7.9); POC - TROPONIN <0.05 ng/mL (<=0.05)
[2016-10-11 06:15] LABS: BASOPHIL% 0.4 % (0-2.5); EOSINOPHIL% 0.1 % (0.0-7.0); HEMATOCRIT 30.6 % (38.0-50.0); HEMOGLOBIN 9.6 gm/dL (13.0-16.0); LYMPHOCYTE# 1.2 X10e3 (1.0-3.5); LYMPHOCYTE% 12.3 % (17.0-45.0); MEAN CELL VOLUME 88.4 FL (83-96); MEAN CORPUSCULAR HEMOGLOBIN 27.9 PG (28-34); MEAN CORPUSCULAR HGB CONC 31.5 g/dL (30-36); MEAN PLATELET VOLUME 6.2 FL (6.5-11.5); MONOCYTE# 0.7 X10e3 (0-1.0); MONOCYTE% 6.9 % (3.0-12.0); NEUTROPHIL# 7.6 X10e3 (1.5-7.1); NEUTROPHIL% 80.3 % (40-75); PLATELET COUNT 361 X10e3 (140-420); RED BLOOD COUNT 3.46 X10e (3.90-5.60); RED CELL DISTRIBUTION WIDTH 15.4 % (11.0-15.5); WHITE BLOOD COUNT 9.5 X10e3 (4.0-10.5)
[2016-10-11 06:21] LABS: DIFF IND NO
[2016-10-11 07:10] LABS: CK TOTAL 26 IU/L (36-174)
[2016-10-11 07:18] LABS: ALBUMIN SERUM 1.6 g/dL (3.5-5.0); BILIRUBIN,TOTAL 1.2 mg/dL (0.2-2.0); BUN/CREATININE RATIO 32.85; CALCIUM SERUM 7.7 mg/dL (8.4-10.2); CREATININE SERUM 0.7 mg/dL (0.6-1.4); POTASSIUM 4.6 mmol/L (3.5-5.1); PROTEIN TOTAL SERUM 5.5 g/dL (6.0-8.3)
[2016-10-12 10:15] LABS: BUN/CREATININE RATIO 25.71; CALCIUM SERUM 8.6 mg/dL (8.4-10.2); CREATININE SERUM 0.7 mg/dL (0.6-1.4); POTASSIUM 4.8 mmol/L (3.5-5.1)
== END 2016-10-13 23:45 | disposition expired | DRG 189 ==
LOC: CED 01:04 → CEDOF 03:40 → C3A PCU 03:40 → CED 04:00 → CEDOF 04:00 → C3A PCU 06:49
PROVIDERS: Internal Medicine; Nurse Practitioner Family
DX: J96.01 Acute respiratory failure with hypoxia (principal); J18.9 Pneumonia, unspecified organism; C34.90 Malignant neoplasm of unspecified part of unspecified bronchus or lung; J44.0 Chronic obstructive pulmonary disease with (acute) lower respiratory infection; Z51.5 Encounter for palliative care; I10 Essential (primary) hypertension; K21.9 Gastro-esophageal reflux disease without esophagitis; Z87.891 Personal history of nicotine dependence; Z66 Do not resuscitate; Z88.5 Allergy status to narcotic agent; Z80.42 Family history of malignant neoplasm of prostate
CPT/HCPCS: 36415; 36600; 71010; 80048; 80053; 80076; 82550; 82553; 82803; 83605; 84484; 85025; 87040; 93005; 94640; 94760; 99285; J2060; J2270; J2543; J3260; J3370